=== PATIENT | male | born 1990 | race Caucasian/White ===

== ENCOUNTER → 2019-08-12 12:18 | Outpatient (BNVA) | payer MEDICARE, MEDICAID, SELFPAY | PROVIDERS: Visit Provider Nurse Practitioner Family | DX: E03.9 Hypothyroidism, unspecified (principal); E55.9 Vitamin D deficiency, unspecified; E78.2 Mixed hyperlipidemia; D64.9 Anemia, unspecified; Z79.899 Other long term (current) drug therapy | CPT/HCPCS: 80053; 80061; 81001; 82306; 83036; 83540; 84439; 84443; 84481; 85025 ==

== ENCOUNTER 2019-11-08 18:49 | Emergency (ER) | payer MEDICARE, MEDICAID, SELFPAY ==
[2019-11-08 19:01] VITALS: PULSE 117; RESP 14; TEMP 36.6; O2SAT 97; BMI 40.6
--- NOTE | 2019-11-08 19:17 | ECG_ITS ---
Measurements Intervals [place] Rate: 108 P: 47 VA: 128 QRS: 68 QRSD: 96 T: 30 QT: 328 QTc: 440 SINUS TACHYCARDIA No previous ECG available for comparison Electronically Signed On 11-09-2019 9:34:10 CDT by Laina Mejia M.D. [email or web address]
--- NOTE | 2019-11-08 19:17 | XRR_ITS ---
PROCEDURE INFORMATION: Exam: XR Chest, 1 View Exam date and time: 11/08/2019 8:35 PM Age: 29 years old Clinical indication: Chest pain; Type not specified TECHNIQUE: Imaging protocol: XR of the chest Views: 1 view. COMPARISON: CR Ribs RIGHT w PA Chest [id number] 12/01/2018 9:37 AM FINDINGS: Lungs: Unremarkable. No consolidation. Pleural space: Unremarkable. No pleural effusion. No pneumothorax. Heart/Mediastinum: Unremarkable. No cardiomegaly. Bones/joints: Unremarkable. XR/XR chest 1V portable [id number] IMPRESSION: No acute findings.
[2019-11-08 19:44] VITALS: BP 152/110
[2019-11-08 20:00] LABS: Basophils # 0.1 10^3/uL (0.0-0.1); Basophils % 0.7 %; Eosinophils # 0.6 10^3/uL (0.0-0.8); Eosinophils % 4.1 %; Hemoglobin 16.2 g/dL (11.7-16.6); Mean Corpuscular HGB Conc 31.2 g/dL (30.0-36.0); Mean Corpuscular Hemoglobin 25.1 pg (28.0-34.0); Mean Corpuscular Volume 80.6 fL (80-94); Mean Platelet Volume 9.1 fL (7.4-10.4); Monocytes # 0.9 10^3/uL (0.2-0.9); Monocytes % 6.6 %; Neutrophils # 9.1 10^3/uL (1.8-7.7); Neutrophils % 66.2 %; Nucleated Red Blood Cells % 0 %; Platelet Count 424 10^3/cmm (130-400); Red Blood Count 6.45 10^6/uL (4.1-5.3); Red Cell Distribution Width 15.2 % (12.1-15.1); White Blood Count 13.7 10^3/uL (4.0-10.0)
[2019-11-08 20:21] LABS: Alanine Aminotransferase 42 U/L (0-41); Albumin Level 4.9 g/dL (3.5-5.2); Alkaline Phosphatase 68 IU/L (40-130); Anion Gap 17.6 (5-19); Aspartate Amino Transferase 29 U/L (0-40); Blood Urea Nitrogen 16 mg/dL (6-20); Calcium 10.7 mg/dL (8.5-10.5); Carbon Dioxide 27 mmol/L (22-29); Chloride 99 mmol/L (98-107); Globulin 3.5 g/dL (1.3-4.6); Glomerular Filtration Rate 132.4 mL/min (90-130); Glucose 97 mg/dL (65-115); Osmolality Calculated 286 mOsm/kg (285-295); Potassium 3.6 mmol/L (3.5-5.1); Sodium 140 mmol/L (136-145); Total Bilirubin 2.1 mg/dL (0.15-1.2); Total Protein 8.4 g/dL (6.6-8.7); Troponin(5th) Baseline 6 ng/mL (0-15)
--- NOTE | 2019-11-08 20:51 | W.ED.GENADLT ---
HPI - General Adult General: Chief complaint: Headache Stated complaint: HIGH HEART RATE/BP Time Seen by Provider: 11/08/19 20:18 Source: patient Mode of arrival: ambulatory Limitations: no limitations History of Present Illness: HPI narrative: Patient is a 29-year-old male who presents to ED today with complaint of high blood pressure. Patient states he has been noticing high blood pressure over the past 1 to 2 weeks ever since he began checking it at home. He was initially seen at [facility] ED who placed the patient on clonidine. Patient followed up with his PCP DAMIAN whalen who placed the patient on amlodipine. Prescription according to the mother is written for 10 mg twice daily but patient was instructed to only take 1 a day. Patient reports his blood pressure earlier today was 190 systolic. He has been having intermittent headaches over the past several weeks. Onset (ago): week(s) Associated symptoms: Deny chest pain, dyspnea, headache(s), rash, palpitations or syncope Review of Systems Const: Denies: fever(s) or chills Eyes: Denies: change in vision, blurry vision, photophobia, floaters or seeing flashes Card: Denies: chest pain, palpitations, irregular heart rhythm, edema, swelling of feet/ankles, lightheadedness, syncope, pre-syncope, dyspnea on exertion, orthopnea or leg pain with exertion Resp: Denies: dyspnea GI: Denies: abdominal pain Musc: Denies: neck pain or back pain Skin/Breast: Denies: rash Neuro: Denies: headache(s), numbness in extremities, weakness in extremities, sensory changes, lack of coordination, difficulty walking, frequent falls, dizziness or Slurred speech present [facility] ED PFSH: Medical History (Updated 11/08/19 @ 21:42 by VANESSA Cheema) ADHD (attention deficit hyperactivity disorder) Anemia Asperger's disorder Bipolar 2 disorder Bipolar disorder, unspecified Environmental and seasonal allergies Headache Hypothyroid Mixed hyperlipidemia Vitamin D deficiency Surgical History History of cholecystectomy History of tonsillectomy and adenoidectomy Social History Smoking and tobacco status: never smoked Second hand smoke exposure: No Smoking risk assessment/counseling performed?: No Alcohol intake: never Desire information about alcohol rehabilitation?: No Counseling given: No Physical Exam Const: COMMON NORMALS: no acute distress, average body habitus, patient oriented x3, no limitations, healthy appearing, alert and well nourished ORIENTATION/CONSCIOUSNESS: Yes oriented to person, Yes oriented to place and Yes oriented to time Chest: COMMONS NORMALS: normal inspection of the chest and normal palpation of entire chest wall Resp: COMMON NORMALS: normal respiratory effort and clear to auscultation bilaterally AUSCULTATION: clear to auscultation bilaterally Cardio: COMMON NORMALS: regular rhythm RATE: tachycardic RHYTHM: regular rhythm Neuro: MARIAM COMA SCALE: document GCS findings [place] coma scale eye opening: Spontaneous [place] coma scale verbal response: Orientated Mariam coma scale motor response: Obey commands Mariam coma scale total score: 15 COMMON NORMALS: patient oriented x3, moves all extremities, no focal motor deficits, no sensory deficits noted and gait normal SENSORIUM/ORIENTATION: Yes alert, Yes oriented to person, Yes oriented to place and Yes oriented to time Skin: COMMON NORMALS: no rashes or lesions noted GENERAL SKIN EXAM: no rashes or lesions noted Course Vital Signs: Vital signs: Vital Signs Temperature 97.8 F 11/08/19 19:01 Pulse Rate 104 H 11/08/19 21:51 Respiratory Rate 18 11/08/19 21:51 Blood Pressure 149/99 11/08/19 21:51 Pulse Oximetry 96 11/08/19 21:51 MDM - General Adult MDM Narrative: Medical decision making narrative: Patient is in NAD-he is stefania on his cell phone and doesn't even look up when I speak to him regarding discharge and plan. Patient's labs including troponin as well as a CXR and EKG all are non-concerning. We will add metoprolol to patient's blood pressure regimen. He has a follow-up appointment with his PCP DAMIAN whalen on Sunday for further follow-up. Lab Data: Labs: Lab Results 11/08/19 11/08/19 11/08/19 Range/Units 19:49 19:49 19:49 WBC 13.7 H (4.0-10.0) 10^3/ uL RBC 6.45 H (4.1-5.3) 10^6/u L Hgb 16.2 (11.7-16.6) g/dL Hct 52.0 (42.0-52.0) % MCV 80.6 (80-94) fL MCH 25.1 L (28.0-34.0) pg MCHC 31.2 (30.0-36.0) g/dL RDW 15.2 H (12.1-15.1) % Plt Count 424 H (130-400) 10^3/c mm MPV 9.1 (7.4-10.4) fL Neut % (Auto) 66.2 % Lymph % (Auto) 22.0 % [place] % (Auto) 6.6 % Eos % (Auto) 4.1 % Baso % (Auto) 0.7 % Neut # (Auto) 9.1 H (1.8-7.7) 10^3/u L Lymph # (Auto) 3.0 (0.8-4.8) 10^3/u L [place] # (Auto) 0.9 (0.2-0.9) 10^3/u L Eos # (Auto) 0.6 (0.0-0.8) 10^3/u L Baso # (Auto) 0.1 (0.0-0.1) 10^3/u L Nucleated RBC % (a uto) 0 % Nucleated RBCs # 0.0 /100WBC Sodium 140 (136-145) mmol/L Potassium 3.6 (3.5-5.1) mmol/L Chloride 99 (98-107) mmol/L Carbon Dioxide 27 (22-29) mmol/L Anion Gap 17.6 (5-19) BUN 16 (6-20) mg/dL Creatinine 0.7 (0.7-1.2) mg/dL GFR Calculation 132.4 H (90-130) mL/min Glucose 97 (65-115) mg/dL Calculated Osmolal ity 286 (285-295) mOsm/k g Calcium 10.7 H (8.5-10.5) mg/dL Total Bilirubin 2.1 H (0.15-1.2) mg/dL AST 29 (0-40) U/L ALT 42 H (0-41) U/L Alkaline Phosphata se 68 (40-130) IU/L Troponin T Baselin e 6 (0-15) ng/mL Troponin T 120 Min bandar (0-15) ng/mL Total Protein 8.4 (6.6-8.7) g/dL Albumin 4.9 (3.5-5.2) g/dL Globulin 3.5 (1.3-4.6) g/dL / Range/Units 21:40 WBC (4.0-10.0) 10^3/ uL RBC (4.1-5.3) 10^6/u L Hgb (11.7-16.6) g/dL Hct (42.0-52.0) % MCV (80-94) fL MCH (28.0-34.0) pg MCHC (30.0-36.0) g/dL RDW (12.1-15.1) % Plt Count (130-400) 10^3/c mm MPV (7.4-10.4) fL Neut % (Auto) % Lymph % (Auto) % [place] % (Auto) % Eos % (Auto) % Baso % (Auto) % Neut # (Auto) (1.8-7.7) 10^3/u L Lymph # (Auto) (0.8-4.8) 10^3/u L [place] # (Auto) (0.2-0.9) 10^3/u L Eos # (Auto) (0.0-0.8) 10^3/u L Baso # (Auto) (0.0-0.1) 10^3/u L Nucleated RBC % (a uto) % Nucleated RBCs # /100WBC Sodium (136-145) mmol/L Potassium (3.5-5.1) mmol/L Chloride (98-107) mmol/L Carbon Dioxide (22-29) mmol/L Anion Gap (5-19) BUN (6-20) mg/dL Creatinine (0.7-1.2) mg/dL GFR Calculation (90-130) mL/min Glucose (65-115) mg/dL Calculated Osmolal ity (285-295) mOsm/k g Calcium (8.5-10.5) mg/dL Total Bilirubin (0.15-1.2) mg/dL AST (0-40) U/L ALT (0-41) U/L Alkaline Phosphata se (40-130) IU/L Troponin T Baselin e (0-15) ng/mL Troponin T 120 Min bandar 6.00 (0-15) ng/mL Total Protein (6.6-8.7) g/dL Albumin (3.5-5.2) g/dL Globulin (1.3-4.6) g/dL Imaging Data^: CXR: My impression: NAD EKG Data^: EKG 1: EKG interpretation date: 11/08/19 EKG interpretation time: 20:53 Interpretation: Sinus tachycardia Rate [address] elevation or depression changes noted Discharge Plan Discharge Patient Disposition: Home, Self-Care Clinical Impression: Hypertension Qualifiers: Hypertension type: essential hypertension Qualified Code(s): I10 - Essential (primary) hypertension Condition: Stable Prescriptions: New metoprolol tartrate 25 mg tablet 25 mg PO BID Qty: 60 RF: 0 No Action nystatin 100,000 unit/gram cream 1 applic TOPICAL BID 30 Days Qty: 30 RF: 0 triamcinolone acetonide 0.5 % cream 1 applic TOPICAL DAILY 30 Days Qty: 15 RF: 0 mupirocin 2 % ointment TOPICAL RF: 0 cholecalciferol (vitamin D3) 1,250 mcg (50,000 unit) capsule 50,000 unit PO DAILY 90 Days Qty: 12 RF: 1 hydroxyzine HCl 10 mg tablet 10 mg PO BID PRN (Reason: itching) 30 Days Qty: 60 RF: 0 amitriptyline 10 mg tablet 10 - 20 mg PO .at bedtime 30 Days Qty: 60 RF: 0 mupirocin 2 % ointment 1 applic TOPICAL TID PRN (Reason: cellulitis) 30 Days Qty: 22 RF: 2 amlodipine 5 mg tablet 10 mg PO DAILY 30 Days Qty: 60 RF: 0 levothyroxine 200 mcg tablet PO RF: 0 Combivent Respimat 20-100 mcg/actuation mist 1 puff INHALATION Q6H Qty: 4 RF: 0 ibuprofen 800 mg tablet 800 mg PO Q8H PRN (Reason: pain) 30 Days Qty: 30 RF: 1 Discharge Orders: Discharge Order (Routine); Ordered 11/08/19 Ordered By: Frances Limon Patient Instructions: Hypertension (ED) Activity Restrictions/Additional Instructions: I will add another medication to patient's blood pressure regimen. Keep taking the Norvasc 5 mg tablet daily. Please keep blood pressure log (measure 2-3 times daily). Please follow-up with primary care next week for reevaluation. Discharge Date/Time: 11/08/19 21:50 Coding Level of Care Code ED Mail Manager for Kelsey Espinoza
[2019-11-08 21:51] VITALS: BP 149/99; PULSE 104; RESP 18; O2SAT 96
[2019-11-08 22:01] LABS: Troponin 5 2HR Delta 0 ABS# (0-10)
== END 2019-11-08 21:50 | disposition home or self-care (01) ==
PROVIDERS: Emergency Provider Physician Assistant
DX: I10 Essential (primary) hypertension (principal); F84.5 Asperger's syndrome; E78.2 Mixed hyperlipidemia
CPT/HCPCS: 12345; 36415; 71045; 80053; 84484; 85025; 93005; 99281; 99282; 99283

== ENCOUNTER → 2020-03-30 10:56 | Outpatient (BNVA) | payer MEDICARE, MEDICAID, SELFPAY | PROVIDERS: Visit Provider Nurse Practitioner Family | DX: Z11.59 Encounter for screening for other viral diseases (principal); Z20.828 Contact with and (suspected) exposure to other viral communicable diseases; J06.9 Acute upper respiratory infection, unspecified | CPT/HCPCS: 87635 ==

== ENCOUNTER → 2020-05-27 09:56 | Outpatient (BNVA) | payer MEDICARE, MEDICAID, SELFPAY | PROVIDERS: Visit Provider Nurse Practitioner Family | DX: D50.9 Iron deficiency anemia, unspecified (principal); I10 Essential (primary) hypertension; Z79.899 Other long term (current) drug therapy; E78.2 Mixed hyperlipidemia; E55.9 Vitamin D deficiency, unspecified; R04.0 Epistaxis | CPT/HCPCS: 80053; 80061; 81003; 82306; 82607; 83036; 83540; 85025 ==

== ENCOUNTER → 2020-10-28 15:26 | Outpatient (BNVA) | payer MEDICARE, MEDICAID, SELFPAY | PROVIDERS: Visit Provider Nurse Practitioner Family | DX: E03.9 Hypothyroidism, unspecified (principal); E55.9 Vitamin D deficiency, unspecified; I10 Essential (primary) hypertension; D50.9 Iron deficiency anemia, unspecified; E78.2 Mixed hyperlipidemia; L30.9 Dermatitis, unspecified; Z79.899 Other long term (current) drug therapy | CPT/HCPCS: 80053; 80061; 81003; 82306; 82607; 82746; 83036; 83550; 84439; 84443; 85025 ==

== ENCOUNTER 2020-12-08 21:06 | Emergency (ER) | payer MEDICARE, MEDICAID, SELFPAY ==
[2020-12-08 21:36] VITALS: BP 148/102; PULSE 101; RESP 16; TEMP 36.7; O2SAT 94; BMI 40.1
--- NOTE | 2020-12-08 21:53 | ED_ITS ---
HPI - Allergic Reaction General: Chief complaint: Allergic Reaction Stated complaint: WASP STING Time Seen by Provider: 12/08/20 21:49 Source: patient Mode of arrival: ambulatory Limitations: no limitations History of Present Illness: HPI narrative: 30-year-old male who states he was stung by a wasp 3 times this afternoon. He states he had some pain at the site and itchiness. He states he also folic his throat was maybe swelling and felt short of breath. He is in no distress here with no signs of throat swelling. Denies any worsening improving factors. Associated symptoms: Deny abdominal pain, nausea or vomiting Review of Systems Const: Denies: fever(s), chills, body aches or change in appetite Eyes: Denies: blurry vision or eye discomfort ENMT: Denies: throat pain or dental pain Card: Denies: chest pain Resp: Denies: dyspnea GI: Denies: abdominal pain, nausea, vomiting or diarrhea : Denies: dysuria Musc: Denies: neck pain or back pain Skin/Breast: Denies: rash Neuro: Denies: headache(s) Psych: Denies: depression Emir/Lymph: Denies: easy bruising All/Imm: Denies: urticaria PFSH ED PFSH: Medical History (Updated 12/08/20 @ 21:53 by Randy Romano MD) ADHD (attention deficit hyperactivity disorder) Anemia Asperger's disorder Bipolar 2 disorder Bipolar disorder, unspecified Cough Dermatitis Environmental and seasonal allergies Essential hypertension, benign Headache Hypothyroid Leukocytosis Lower respiratory tract infection Medication management Mixed hyperlipidemia Nasal bleeding Vitamin D deficiency Surgical History History of cholecystectomy History of tonsillectomy and adenoidectomy Social History Smoking and tobacco status: never smoked Second hand smoke exposure: No Smoking risk assessment/counseling performed?: No Alcohol intake: never Desire information about alcohol rehabilitation?: No Counseling given: No Physical Exam Const: COMMON NORMALS: no acute distress, patient oriented x3 and healthy appearing HENMT: COMMON NORMALS: normocephalic and atraumatic HEAD & SCALP: normocephalic and atraumatic THROAT: posterior oropharynx normal Eye: COMMON NORMALS: Equal, round and reactive pupils present and EOMs intact bilaterally PUPIL: Yes Equal, round and reactive pupils present Neck/C-Spine: COMMON NORMALS: full ROM and supple Chest: COMMONS NORMALS: normal inspection of the chest and normal palpation of entire chest wall Resp: COMMON NORMALS: normal respiratory effort, No retractions, No use of accessory muscles and clear to auscultation bilaterally AUSCULTATION: clear to auscultation bilaterally Cardio: COMMON NORMALS: regular rate, regular rhythm and No murmurs present (Cardio) RATE: regular rate RHYTHM: regular rhythm GI: COMMON NORMALS: Normal to inspection, nondistended, normoactive bowel sounds present, Soft to palpation, non-tender and no masses PALPATION: Yes Soft to palpation Extremity: COMMON NORMALS: normal to inspection and full ROM Neuro: COMMON NORMALS: patient oriented x3, moves all extremities and no focal motor deficits Psych: COMMON NORMALS: mental status grossly normal, Normal thought process present and cooperative THOUGHT PROCESS: Normal thought process present Skin: COMMON NORMALS: no rashes or lesions noted and no wounds NARRATIVE SKIN EXAM: 2 and 6 things to lower back along with left middle finger GENERAL SKIN EXAM: no rashes or lesions noted Course Vital Signs: Vital signs: Vital Signs Temperature 98.1 F 12/08/20 21:36 Pulse Rate 101 H 12/08/20 21:36 Respiratory Rate 16 12/08/20 21:36 Blood Pressure 148/102 12/08/20 21:36 Pulse Oximetry 94 12/08/20 21:36 MDM - Allergic Reaction MDM Narrative: Medical decision making narrative: Patient presents here with stating to his back and his finger with no signs of severe allergic reactions. He has minimal swelling at the sites and no dyspnea or throat swelling here. Patient given steroid and Benadryl and is stable for discharge. He is return if worsening. Discharge Plan Discharge Patient Disposition: Home Clinical Impression: Accidental wasp sting Condition: Stable Prescriptions: No Action albuterol sulfate 0.63 mg/3 mL solution for nebulization 0.63 mg INHALATION Q6H PRN (Reason: bronchospasm) 30 Days Qty: 90 RF: 0 nystatin 100,000 unit/gram cream 1 applic TOPICAL BID 30 Days Qty: 60 RF: 2 triamcinolone acetonide 0.1 % ointment 1 applic topical BID PRN (Reason: dermatitis) 30 Days Qty: 80 RF: 1 levothyroxine 200 mcg tablet PO RF: 0 topiramate 25 mg tablet PO RF: 0 sodium chloride 0.9 % aerosol,spray 1 spray intranasal TID PRN (Reason: dry nasal passages) 30 Days Qty: 50 RF: 2 metoprolol tartrate 25 mg tablet See Rx Instructions .ROUTE .COMPLEX Qty: 60 RF: 2 amlodipine 5 mg tablet See Rx Instructions .ROUTE .COMPLEX Qty: 60 RF: 2 cholecalciferol (vitamin D3) 1,250 mcg (50,000 unit) capsule 50,000 unit PO .weekly Qty: 4 RF: 2 rosuvastatin [Crestor] 5 mg tablet 2.5 mg PO DAILY Qty: 30 RF: 2 Advair HFA 230-21 mcg/actuation HFA aerosol inhaler See Rx Instructions .ROUTE .COMPLEX Qty: 12 RF: 2 Combivent Respimat 20-100 mcg/actuation mist See Rx Instructions .ROUTE .COMPLEX Qty: 4 RF: 2 Discharge Orders: Discharge ED (Routine); Ordered 12/08/20 Ordered By: Randy Romano Referrals: DAMIAN Viveros, WIRE TINNER [Primary Care Provider] - Discharge Diet: Advance as tolerated Discharge Activity: Resume usual activity Patient Instructions: Insect Bite or Sting (ED) Coding Level of Care Code ED Senior National Account Manager for Kelsey Espinoza
[2020-12-08] MEDS: famotidine 20 mg Tablet 40 MG PO (22:02)
[2020-12-08] MEDS: predniSONE 20 mg Tablet 60 MG PO (22:02)
== END 2020-12-08 22:27 | disposition home or self-care (01) ==
PROVIDERS: Emergency Provider Emergency Medicine; PCP Nurse Practitioner Family
DX: T63.461A Toxic effect of venom of wasps, accidental (unintentional), initial encounter (principal); F84.5 Asperger's syndrome; I10 Essential (primary) hypertension; E78.2 Mixed hyperlipidemia
CPT/HCPCS: 99283; J7512

== ENCOUNTER 2021-06-17 13:15 | Emergency (ER) | payer MEDICARE, MEDICAID, SELFPAY ==
--- NOTE | 2021-06-17 13:17 | W.ED.PSYCHS ---
HPI - Psych General: Chief Complaint: Psychiatric Symptoms Stated Complaint: PSYCH EVALUATION Time Seen by Provider: 06/17/21 13:16 History of Present Illness: HPI Narrative: Marcio Baker is a 31-year-old individual who presents the emergency department due to worsening stress and depression primarily requesting resources. The patient says over the past number of years, since coming out as transgender, the patient's home situation has been difficult. Marcio feels no support from family and at times gets into fights with stepfather and sibling. The patient reports baseline depression however no active SI or SI plan. No history of suicide attempts. No other significant medical complaints or changes in health. No other specific exacerbating or alleviating factors identified. Review of Systems General: Reports: 10 or more systems reviewed and unremarkable except in HPI and below PFSH ED PFSH: Medical History Acute bacterial sinusitis ADHD (attention deficit hyperactivity disorder) Anemia Asperger's disorder Bipolar 2 disorder Bipolar disorder, unspecified Cerumen impaction Cough Dermatitis Environmental and seasonal allergies Essential hypertension, benign Headache Hypothyroid Leukocytosis Lower respiratory tract infection Medication management Mixed hyperlipidemia Nasal bleeding Vitamin D deficiency Surgical History History of cholecystectomy History of tonsillectomy and adenoidectomy Social History Smoking and tobacco status: never smoked Second hand smoke exposure: No Smoking risk assessment/counseling performed?: No Alcohol intake: never Desire information about alcohol rehabilitation?: No Counseling given: No Physical Exam Narrative: EXAM NARRATIVE: GENERAL/CONSTITUTIONAL - well-appearing. Obese. Eyes - PERRL, no conjunctival injection ENMT - Atraumatic external nose and ears. Moist mucous membranes NECK - supple. trachea midline CARDIOVASCULAR - regular rate and rhythm. RESPIRATORY -clear to auscultation bilaterally. ABDOMEN/GI - Nontender/Nondistended. MSK - Extremities without obvious deformity or tenderness to palpation SKIN - Warm, Dry NEURO - alert and appropriately oriented. Moves all extremities equally. PSYCH -frustrated affect Course ED course: - Patient was seen and evaluated by me at bedside -Vital signs obtained - Initial evaluation notable for exam as above - Labs and imaging obtained and reviewed - Challenging situation, unfortunately the patient has no indication for hospital admission. I attempted multiple times to have social work come and assist the patient however it is unclear if they ever actually spoke with the patient. Ultimately I will place an order for case management to assist with housing resources on Sunday. - Patient discharged in satisfactory condition. Vital Signs: Vital signs: Vital Signs Temperature 97.6 F 06/17/21 13:34 Pulse Rate 103 H 06/17/21 17:35 Respiratory Rate 15 06/17/21 17:35 Blood Pressure 137/101 06/17/21 17:35 Pulse Oximetry 92 06/17/21 17:35 MDM - Psych Medical Records: Attestation: I reviewed the patient's medical records. Lab Data: Attestation: I reviewed the patient's lab results. Discharge Plan Discharge Patient Disposition: Home Clinical Impression: Depression, Other social stressor Condition: Stable Prescriptions: No Action triamcinolone acetonide 0.1 % ointment 1 applic topical BID PRN (Reason: dermatitis) 30 Days Qty: 80 RF: 1 albuterol sulfate 0.63 mg/3 mL solution for nebulization 0.63 mg INHALATION Q6H PRN (Reason: bronchospasm) 30 Days Qty: 90 RF: 1 (DME) nebulizer mask See Rx Instructions .Route .MEDSUPPLY Qty: 1 RF: 0 nystatin 100,000 unit/gram cream 1 applic TOPICAL BID 30 Days Qty: 60 RF: 2 topiramate 25 mg tablet 25 mg PO .nightly 30 Days Qty: 30 RF: 0 sodium chloride 0.9 % aerosol,spray 1 spray intranasal TID PRN (Reason: dry nasal passages) 30 Days Qty: 50 RF: 2 amlodipine 5 mg tablet See Rx Instructions .ROUTE .COMPLEX Qty: 60 RF: 2 cholecalciferol (vitamin D3) 1,250 mcg (50,000 unit) capsule 50,000 unit PO .weekly Qty: 4 RF: 2 rosuvastatin [Crestor] 5 mg tablet 2.5 mg PO DAILY Qty: 30 RF: 2 Advair HFA 230-21 mcg/actuation HFA aerosol inhaler See Rx Instructions .ROUTE .COMPLEX Qty: 12 RF: 0 Combivent Respimat 20-100 mcg/actuation mist See Rx Instructions .ROUTE .COMPLEX Qty: 4 RF: 0 ibuprofen 800 mg tablet See Rx Instructions .ROUTE .COMPLEX Qty: 30 RF: 0 metoprolol tartrate 25 mg tablet See Rx Instructions .ROUTE .COMPLEX Qty: 60 RF: 5 Discharge Orders: Discharge ED (Routine); Ordered 06/17/21 Ordered By: Chris Murcia Referrals: DAMIAN Viveros FNP [Primary Care Provider] - Discharge Diet: Usual diet Discharge Activity: Resume usual activity Patient Instructions: Depression (ED) Activity Restrictions/Additional Instructions: Thank you for visiting the emergency department. You were seen and evaluated for increased stress. This is a challenging social situation and you will likely benefit from leaving your current housing arrangement. Unfortunately, this will take some time. I will message our high risk case manager to follow-up regarding assistance for new housing arrangements. Please continue to follow-up with your primary care provider and psychiatric care provider. Please return to the emergency department for worsening symptoms, worsening depression, thoughts of harming your self or others, or anything else that you are concerned about and feel needs emergency department evaluation. Coding Level of Care Code ED [employer] Agriculture Specialist for Kelsey Espinoza
[2021-06-17 13:34] VITALS: BP 148/99; PULSE 90; RESP 18; TEMP 36.4; O2SAT 95; BMI 40.1
--- NOTE | 2021-06-17 17:19 | PC.NURSE ---
Spoke with Emily a social work instructor assigned to pt. Emily discussed with this nurse that pt would be eligible for living in a longterm but would not be able to get into the home until sunday or sunday. Additional case management order placed for Dr. Murcia for follow up on sunday.
[2021-06-17 17:35] VITALS: BP 137/101; PULSE 103; RESP 15; O2SAT 92
--- NOTE | 2021-06-21 10:56 | DCPLANNER ---
manager payer had message to speak with patient about housing resources. manager payer was unable to reach patient at this time.
== END 2021-06-17 17:38 | disposition home or self-care (01) ==
PROVIDERS: Emergency Provider Emergency Medicine; PCP Nurse Practitioner Family
DX: F32.A Depression, unspecified (principal); Z63.8 Other specified problems related to primary support group; F84.5 Asperger's syndrome; I10 Essential (primary) hypertension; E78.2 Mixed hyperlipidemia
CPT/HCPCS: 99283

== ENCOUNTER → 2021-10-31 10:50 | Outpatient (BNVA) | payer MEDICARE, MEDICAID, SELFPAY | PROVIDERS: PCP Nurse Practitioner Family; Visit Provider Nurse Practitioner | DX: I10 Essential (primary) hypertension (principal); R60.9 Edema, unspecified | CPT/HCPCS: 80053; 84443; 85025 ==

== ENCOUNTER 2022-01-13 10:52 | Emergency (ER) | payer MEDICARE, MEDICAID, SELFPAY ==
[2022-01-13 10:57] VITALS: BP 184/100; PULSE 109; RESP 16; TEMP 36.6; O2SAT 100; BMI 40.1
--- NOTE | 2022-01-13 11:13 | PC.NURSE ---
Patient denies SI/HI at this time. Patient will not be placed with sitter or psych safe room at this time per ERP.
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
[2022-01-13 11:26] VITALS: BP 139/87; PULSE 100; RESP 18; O2SAT 98
[2022-01-13 11:29] LABS: Basophils # 0.1 10^3/uL (0.0-0.1); Basophils % 0.6 %; Eosinophils # 0.4 10^3/uL (0.0-0.8); Hematocrit 43.8 % (42.0-52.0); Hemoglobin 14.1 g/dL (11.7-16.6); Lymphocytes # 1.8 10^3/uL (0.8-4.8); Lymphocytes % 14.5 %; Mean Corpuscular HGB Conc 32.2 g/dL (30.0-36.0); Mean Corpuscular Hemoglobin 26.4 pg (28.0-34.0); Mean Corpuscular Volume 81.9 fl (80-94); Mean Platelet Volume 9.3 fL (7.4-10.4); Monocytes # 0.5 10^3/uL (0.2-0.9); Monocytes % 4.3 %; Neutrophils # 9.77 10^3/uL (1.8-7.7); Neutrophils % 77.3 %; Nucleated Red Blood Cells % 0 %; Platelet Count 407 10^3/cmm (130-400); Red Blood Count 5.35 10^6/uL (4.1-5.3); Red Cell Distribution Width 14.6 % (12.1-15.1); White Blood Count 12.7 10^3/uL (4.0-10.0)
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
[2022-01-13 11:57] LABS: Acetaminophen < 5.0 ug/mL (10-30); Alanine Aminotransferase 30 U/L (0-41); Albumin Level 4.4 g/dL (3.5-5.2); Alkaline Phosphatase 58 IU/L (40-130); Anion Gap 16.8 (5-19); Aspartate Amino Transferase 24 U/L (0-40); Blood Urea Nitrogen 14 mg/dL (6-20); Calcium 9.1 mg/dL (8.5-10.5); Carbon Dioxide 24 mmol/L (22-29); Chloride 101 mmol/L (98-107); Glomerular Filtration Rate 130.7 mL/min (90-130); Glucose 167 mg/dL (65-115); Osmolality Calculated 290 mOsm/kg (285-295); Potassium 3.8 mmol/L (3.5-5.1); Salicylate < 0.3 mg/dL (3-10); Sodium 138 mmol/L (136-145); Total Bilirubin 0.9 mg/dL (0.15-1.2); Total Protein 7.4 g/dL (6.6-8.7)
[2022-01-13 13:06] VITALS: BP 128/87; PULSE 102; RESP 20; O2SAT 98
== END 2022-01-13 13:28 | disposition home or self-care (01) ==
PROVIDERS: Emergency Provider Family Medicine; PCP Family Medicine
DX: F41.8 Other specified anxiety disorders (principal); F84.0 Autistic disorder; F84.5 Asperger's syndrome; I10 Essential (primary) hypertension; E78.2 Mixed hyperlipidemia
CPT/HCPCS: 73030; 80053; 80307; 85025; 99283

== ENCOUNTER → 2022-03-06 09:49 | Outpatient (BNVA) | payer MEDICARE, MEDICAID, SELFPAY | PROVIDERS: PCP Family Medicine; Visit Provider Nurse Practitioner | DX: F64.0 Transsexualism (principal); Z51.81 Encounter for therapeutic drug level monitoring | CPT/HCPCS: 82565; 82670; 84132; 84403; 84520 ==

== ENCOUNTER → 2022-06-01 13:40 | Outpatient (BNVA) | payer MEDICARE, MEDICAID, SELFPAY | PROVIDERS: PCP Family Medicine; Visit Provider Nurse Practitioner | DX: F64.0 Transsexualism (principal) | CPT/HCPCS: 82565; 82670; 84132; 84403; 84520 ==

== ENCOUNTER → 2022-08-31 10:19 | Outpatient (BNVA) | payer MEDICARE, MEDICAID, SELFPAY | PROVIDERS: PCP Family Medicine; Visit Provider Nurse Practitioner | DX: F64.9 Gender identity disorder, unspecified (principal); F64.0 Transsexualism; Z79.899 Other long term (current) drug therapy | CPT/HCPCS: 82565; 82670; 84132; 84403; 84520 ==

== ENCOUNTER → 2022-11-10 10:51 | Outpatient (BNVA) | payer MEDICARE, MEDICAID, SELFPAY | PROVIDERS: PCP Family Medicine; Visit Provider Nurse Practitioner | DX: E03.9 Hypothyroidism, unspecified (principal) | CPT/HCPCS: 84443 ==

== ENCOUNTER → 2022-12-29 11:03 | Outpatient (BNVA) | payer MEDICARE, MEDICAID, SELFPAY | PROVIDERS: PCP Family Medicine; Visit Provider Nurse Practitioner | DX: F64.9 Gender identity disorder, unspecified (principal); Z79.899 Other long term (current) drug therapy; Z51.81 Encounter for therapeutic drug level monitoring | CPT/HCPCS: 82565; 82670; 84132; 84403 ==

== ENCOUNTER → 2023-05-07 10:51 | Outpatient (BNVA) | payer MEDICARE, MEDICAID, SELFPAY | PROVIDERS: PCP Family Medicine; Visit Provider Nurse Practitioner Family | DX: E55.9 Vitamin D deficiency, unspecified (principal); E03.9 Hypothyroidism, unspecified; E78.2 Mixed hyperlipidemia; Z79.899 Other long term (current) drug therapy; I10 Essential (primary) hypertension; D64.9 Anemia, unspecified | CPT/HCPCS: 80053; 80061; 81003; 82306; 83036; 83550; 84439; 84443; 84481; 85025; 87086 ==

== ENCOUNTER → 2023-08-01 09:37 | Outpatient (BNVA) | payer MEDICARE, MEDICAID, SELFPAY | PROVIDERS: PCP Family Medicine; Visit Provider Nurse Practitioner Family | DX: F64.9 Gender identity disorder, unspecified (principal); F64.0 Transsexualism; Z79.899 Other long term (current) drug therapy; I10 Essential (primary) hypertension; E03.9 Hypothyroidism, unspecified; E78.2 Mixed hyperlipidemia; G43.909 Migraine, unspecified, not intractable, without status migrainosus; F41.9 Anxiety disorder, unspecified | CPT/HCPCS: 80053; 80061; 82670; 83036; 84403; 84443; 85025 ==

== ENCOUNTER → 2023-10-10 13:55 | Outpatient (BNVA) | payer MEDICARE, MEDICAID, SELFPAY | PROVIDERS: PCP Nurse Practitioner Family; Visit Provider Nurse Practitioner Family | DX: M79.645 Pain in left finger(s) (principal) | CPT/HCPCS: 73130 ==

== ENCOUNTER → 2024-05-05 14:34 | Outpatient (BNVA) | payer MEDICARE, MEDICAID, SELFPAY | PROVIDERS: PCP Nurse Practitioner Family; Visit Provider Nurse Practitioner Family | DX: E55.9 Vitamin D deficiency, unspecified (principal); E78.2 Mixed hyperlipidemia; E03.9 Hypothyroidism, unspecified; Z79.899 Other long term (current) drug therapy | CPT/HCPCS: 80053; 80061; 81003; 82306; 83036; 83550; 84443; 85025 ==

== ENCOUNTER → 2024-05-12 11:33 | Outpatient (BNVA) | payer MEDICARE, MEDICAID, SELFPAY | PROVIDERS: PCP Nurse Practitioner Family; Referring Provider Nurse Practitioner Family; Visit Provider Surgery | DX: K62.5 Hemorrhage of anus and rectum (principal); R03.0 Elevated blood-pressure reading, without diagnosis of hypertension; D50.9 Iron deficiency anemia, unspecified | CPT/HCPCS: 99204 ==

== ENCOUNTER 2024-05-21 09:40 | Oncology outpatient (recurring) (ONCR) | payer MEDICARE, MEDICAID, SELFPAY ==
[2024-05-21 11:43] LABS: INR 0.98 (0.8-1.2)
[2024-05-21 11:44] LABS: Partial Thromboplastin Time 30.5 SECONDS (23.9-36.7)
[2024-05-21 11:50] LABS: Alanine Aminotransferase 58 U/L (0-41); Albumin Level 4.3 g/dL (3.5-5.2); Alkaline Phosphatase 67 U/L (40-130); Anion Gap 14.8 (5-19); Aspartate Amino Transferase 77 U/L (0-40); Blood Urea Nitrogen 13 mg/dL (6-20); Calcium 9.2 mg/dL (8.5-10.5); Carbon Dioxide 25 mmol/L (22-29); Chloride 101 mmol/L (98-107); Creatinine Clr Calc Pharmacy 244.0482; Ferritin 30 ng/mL (30-400); Globulin 2.9 g/dL (1.3-4.6); Glomerular Filtration Rate 153.3 mL/min (90-130); Glucose 107 mg/dL (65-115); Iron 26 ug/dL (59-158); Lactate Dehydrogenase 148 U/L (135-225); Osmolality Calculated 285 mOsm/kg (285-295); Potassium 3.8 mmol/L (3.5-5.1); Sodium 137 mmol/L (136-145); Total Bilirubin 0.6 mg/dL (0.15-1.2); Total Iron Binding Capacity 371 mcg/dl; Total Protein 7.2 g/dL (6.6-8.7); Unsaturated Iron Binding 345 ug/dL (112-347)
[2024-05-21 12:02] LABS: Basophils # 0.1 10^3/uL (0.0-0.1); Basophils % 1.1 %; Eosinophils # 1.3 10^3/uL (0.0-0.8); Eosinophils % 10.7 %; Hematocrit 36.3 % (37-53); Lymphocytes # 2.2 10^3/uL (0.8-4.8); Lymphocytes % 17.7 %; Mean Corpuscular HGB Conc 30.9 g/dL (30-55); Mean Corpuscular Hemoglobin 24.8 pg (27-33); Mean Corpuscular Volume 80.5 fl (82-101); Mean Platelet Volume 8.8 fL (7.4-10.4); Monocytes # 0.7 10^3/uL (0.2-0.9); Monocytes % 5.7 %; Neutrophils # 7.86 10^3/uL (1.8-7.7); Neutrophils % 64.6 %; Nucleated Red Blood Cells % 0 %; Platelet Count 525 10^3/cmm (157-399); Red Blood Count 4.51 10^6/uL (3.85-5.65); Red Cell Distribution Width 14.3 % (12.1-15.1); White Blood Count 12.18 10^3/uL (3.29-11.43)
[2024-05-21 12:03] LABS: Vitamin B12 432 pg/mL (232-1245)
[2024-05-21 12:12] LABS: Folate Level 7.9 ng/mL (4.5-32.2)
[2024-05-23 13:55] LABS: Leukemia Profile (BBPL) See Report
[2024-05-28 15:04] LABS: CALR Exon 9 Mutation NOT DETECTED (NOT DETECTED); JAK2 Exon 12 Mutation NOT DETECTED (NOT DETECTED); JAK2 V617 Mutation NOT DETECTED (NOT DETECTED); MPL Exon 10 Mutation NOT DETECTED (NOT DETECTED); Specimen Source whole blood
== END 2024-05-24 23:59 | disposition home or self-care (01) ==
LOC: ONCMED 09:41
PROVIDERS: PCP Nurse Practitioner Family; Visit Provider Internal Medicine
DX: D72.829 Elevated white blood cell count, unspecified (principal); D75.839 Thrombocytosis, unspecified; K62.5 Hemorrhage of anus and rectum; E03.9 Hypothyroidism, unspecified; G43.909 Migraine, unspecified, not intractable, without status migrainosus; F84.5 Asperger's syndrome; F64.0 Transsexualism; E66.9 Obesity, unspecified; Z68.41 Body mass index [BMI] 40.0-44.9, adult; M79.645 Pain in left finger(s)
CPT/HCPCS: 36415; 74021; 80053; 81219; 81270; 81279; 81339; 82607; 82728; 82746; 83010; 83540; 83550; 83615; 85025; 85045; 85610; 85730; 88184; 88185; 99205

== ENCOUNTER 2024-06-04 06:21 | Day surgery (SDC) | payer MEDICARE, MEDICAID, SELFPAY ==
--- NOTE | 2024-06-04 06:16 | P.ANESASSM_ITS ---
Pre-Anesthetic Assessment Height/Weight: Height 5 ft 10 in Preop Diagnosis: Rectal bleeding Operation Date: 06/04/24 07:30 Proposed Procedures p EGD 63207, 68956, G0105, K62.5(Not Applicable) - Senthil Barrett DO s Colonoscopy(Not Applicable) - Senthil Barrett DO Was Beta Nicola taken within 24 hours: N/A Was Clonidine taken within 24 hours: N/A Social No alcohol and No tobacco Exam alert, oriented x 3, clear to auscultation bilaterally and regular rate & rhythm Airway Submandibular: within normal limits Cervical ROM: within normal limits Mallampati: Class II Dentition: other (Poor dentition, multiple missing. Denies any loose) Anesthetic Plan ASA status: 3 Anesthesia: MAC Other: No prior issues with anesthesia Completed bowel prep Has been experiencing blood in stools, iron deficiency anemia noted Asked Buerger's disorder with ADHD Hypothyroidism on Synthroid Hypertension on losartan and propranolol Labs 05/21/2024 reviewed and acceptable for procedure Plan for MAC anesthetic Medications/Allergies Home Medications Medication Instructions Recorded Confirmed Last Taken Type estradiol 2 mg tablet 2 mg PO BID 30 days #60 tabs 12/14/21 06/02/24 06/02/24 Rx ibuprofen 800 mg tablet 800 mg PO Q8H PRN Pain 01/13/22 06/02/24 Unknown History progesterone micronized 100 mg 100 mg PO QAM 01/22/23 06/02/24 06/02/24 History capsule finasteride 1 mg tablet 1 mg PO DAILY 05/07/23 06/02/24 06/02/24 History albuterol sulfate 2.5 mg/3 mL 2.5 mg (3 mL) inhalation Q6H #180 04/09/24 06/02/24 2 Weeks Ago Rx (0.083 %) solution for nebulization mL ~05/19/24 ipratropium 20 mcg-albuterol 100 See Rx Instructions .Route 04/09/24 06/02/24 05/31/24 Rx mcg/actuation mist for inhalation .COMPLEX #4 grams (Combivent Respimat) sumatriptan succinate 50 mg tablet See Rx Instructions .Route 04/09/24 06/02/24 06/01/24 Rx .COMPLEX #10 tabs losartan 25 mg tablet 25 mg PO DAILY #30 tabs 05/05/24 06/02/24 06/02/24 Rx propranolol 20 mg tablet 40 mg PO BID 05/05/24 06/02/24 06/02/24 History cholecalciferol (vitamin D3) 50 50 mcg PO DAILY 90 days #90 caps 05/08/24 06/02/24 06/02/24 Rx mcg (2,000 unit) capsule levothyroxine 100 mcg capsule 100 mcg PO DAILY #100 caps 05/08/24 06/02/24 06/02/24 Rx hydroxyzine HCl 10 mg tablet 10 mg PO BID PRN Anxiety 06/02/24 06/02/24 Unknown History Allergies Allergy/AdvReac Type Severity Reaction Status Date / Time cefaclor [From Ceclor] Allergy Intermediate rash Verified 05/21/24 09:45 cefadroxil [From Duricef] Allergy Intermediate rash Verified 05/21/24 09:45 penicillin G benethamine Allergy Intermediate rash Verified 05/21/24 09:45 [benethamine penicillin] Penicillins Allergy Intermediate rash Verified 05/21/24 09:45 [facility] Anesthesia Medical History Malabsorption syndrome Iron (Fe) deficiency anemia Leukocytosis Rectal bleeding Anxiety Upper respiratory infection Migraine Cerumen impaction Acute bacterial sinusitis Dermatitis Medication management Essential hypertension, benign Cough Lower respiratory tract infection Bipolar disorder, unspecified Headache Hypothyroid Nasal bleeding Vitamin D deficiency Anemia Mixed hyperlipidemia Environmental and seasonal allergies Bipolar 2 disorder ADHD (attention deficit hyperactivity disorder) Asperger's disorder Surgical History History of cholecystectomy History of tonsillectomy and adenoidectomy Social History Smoking and tobacco/nicotine status: never used tobacco/nicotine Second hand smoke exposure: No Alcohol intake: never Data Anesthesia Cardiac Studies: No Data to Display
[2024-06-04 06:41] VITALS: BP 176/109; PULSE 116; RESP 18; TEMP 36.4; O2SAT 99; BMI 44.9
[2024-06-04] MEDS: sodium chloride 0.9% 500 ML 15 ML IV (06:51)
--- NOTE | 2024-06-04 07:37 | W.PM.OPSUD ---
Surgery/Procedure H&P Update DATE OF PROCEDURE: June 04, 2024 DATE H&P PERFORMED: 05/12/24 H&P UPDATE INFORMATION: I have reviewed H&P completed within last 30 days, I have examined patient prior to procedure and No changes to prior documentation PREOP DIAGNOSIS: Rectal bleeding PLANNED PROCEDURE: Operation Date: 06/04/24 07:30 Proposed Procedures p EGD 81130, 41272, G0105, K62.5(Not Applicable) - DO dandre Clement Colonoscopy(Not Applicable) - Senthil Barrett DO
[2024-06-04 08:15] VITALS: BP 154/91; PULSE 112; RESP 20; TEMP 37.3; O2SAT 98
[2024-06-04] MEDS: tranexamic acid 1,000 MG/100 ML PREMIX 600 MG IV (08:20)
[2024-06-04 08:30] VITALS: BP 155/116; PULSE 111; RESP 18; O2SAT 99
[2024-06-04 08:45] VITALS: BP 159/113
--- NOTE | 2024-06-04 09:11 | ANE.PACU2 ---
Inpatient post-anesthesia follow up: Airway intact: Yes Vital signs: Temperature 99.2 F Pulse Rate 111 Respiratory Rate 18 Blood Pressure 159/113 Pulse Oximetry 99 Oxygen Delivery Me thod Room Air Oxygen Flow Rate Fraction of Inspir ed Oxygen Hydration adequate: Yes Nausea and vomiting: No Pain level: 1 Mental status: Baseline
[2024-06-04 16:02] LABS: Carcinoembryonic Antigen 1.6 ng/mL (0.0-4.7)
[2024-06-09 13:37] LABS: Mismatch Repari Proteins-IHC See Report
[2024-06-09 13:40] LABS: Mismatch Repari Proteins-IHC See Report
== END 2024-06-04 09:11 | disposition home or self-care (01) ==
PROVIDERS: PCP Nurse Practitioner Family; Visit Provider Surgery
PROC: 0DJ08ZZ Inspection of Upper Intestinal Tract, Via Natural or Artificial Opening Endoscopic (ICD-10-PCS; CPT 43235; principal; 2024-06-04 07:30)
PROC: 0DJD8ZZ Inspection of Lower Intestinal Tract, Via Natural or Artificial Opening Endoscopic (ICD-10-PCS; CPT 45378; 2024-06-04 07:30)
DX: K62.5 Hemorrhage of anus and rectum (principal); E78.2 Mixed hyperlipidemia; K29.50 Unspecified chronic gastritis without bleeding; C18.4 Malignant neoplasm of transverse colon; C20 Malignant neoplasm of rectum; E03.9 Hypothyroidism, unspecified; I10 Essential (primary) hypertension
CPT/HCPCS: 36415; 43239; 45380; 45385; 82378; 88305; 88341; 88342; J2704; J7040

== ENCOUNTER → 2024-06-09 17:21 | Outpatient (BNVA) | payer MEDICARE, MEDICAID, SELFPAY | PROVIDERS: PCP Nurse Practitioner Family; Visit Provider Surgery | DX: C20 Malignant neoplasm of rectum (principal); K62.5 Hemorrhage of anus and rectum | CPT/HCPCS: 99212 ==

== ENCOUNTER 2024-06-19 12:38 | Oncology outpatient (recurring) (ONCR) | payer MEDICARE, MEDICAID, SELFPAY ==
[2024-06-19 16:06] LABS: Hematocrit 37.4 % (37-53); Mean Corpuscular HGB Conc 30.7 g/dL (30-55); Mean Corpuscular Hemoglobin 23.6 pg (27-33); Mean Corpuscular Volume 76.8 fl (82-101); Mean Platelet Volume 8.7 fL (7.4-10.4); Platelet Count 461 10^3/cmm (157-399); Red Blood Count 4.87 10^6/uL (3.85-5.65); Red Cell Distribution Width 13.6 % (12.1-15.1); White Blood Count 15.81 10^3/uL (3.29-11.43)
[2024-06-19 16:20] LABS: Absolute Eosinophils 1.4 10^3/cmm (0.0-0.7); Absolute Segmented Neutrophil 10.4 10/cmm (1.6-7.1); Eosinophils 9 %; Lymphocytes 18 %; Monocytes Absolute 1.1 10^3/cmm (0.1-0.6); Segmented Neutrophils 66 %; Total Cells Counted 100 (0-100)
[2024-06-19 16:21] LABS: Absolute Neutrophil 10.4 10^3/cmm (1.4-6.5); Alanine Aminotransferase 56 U/L (0-41); Albumin Level 4.4 g/dL (3.5-5.2); Alkaline Phosphatase 70 U/L (40-130); Anion Gap 15.7 (5-19); Aspartate Amino Transferase 67 U/L (0-40); Blood Urea Nitrogen 12 mg/dL (6-20); Calcium 9.7 mg/dL (8.5-10.5); Carbon Dioxide 26 mmol/L (22-29); Chloride 100 mmol/L (98-107); Creatinine Clr Calc Pharmacy 243.1664; Globulin 3.6 g/dL (1.3-4.6); Glomerular Filtration Rate 153.3 mL/min (90-130); Glucose 98 mg/dL (65-115); Lymphocytes Absolute 2.8 10^3/cmm (1.2-3.4); Osmolality Calculated 286 mOsm/kg (285-295); Platelet Estimate Normal (Normal); Potassium 3.7 mmol/L (3.5-5.1); Sodium 138 mmol/L (136-145); Total Bilirubin 0.7 mg/dL (0.15-1.2)
[2024-06-19 20:56] LABS: Carcinoembryonic Antigen 1.8 ng/mL (0.0-4.7)
== END 2024-06-19 23:59 | disposition home or self-care (01) ==
PROVIDERS: PCP Nurse Practitioner Family; Visit Provider Internal Medicine
DX: D72.829 Elevated white blood cell count, unspecified (principal); D75.839 Thrombocytosis, unspecified; D50.9 Iron deficiency anemia, unspecified; K62.5 Hemorrhage of anus and rectum; E03.9 Hypothyroidism, unspecified; E55.9 Vitamin D deficiency, unspecified; F84.0 Autistic disorder; F64.0 Transsexualism
CPT/HCPCS: 80053; 82378; 85007; 85027; 99213

== ENCOUNTER 2024-06-23 05:50 | Day surgery (SDC) | payer MEDICARE, MEDICAID, SELFPAY ==
[2024-06-23] VITALS (10 sets, daily range): BP systolic 123–212; BP diastolic 91–137; PULSE 86–120; RESP 15–24; TEMP 36.1–37; O2SAT 94–100; BMI 44.4
--- NOTE | 2024-06-23 | XR_ITS ---
Portable AP upright chest, 06/23/2024 Clinical Data: POST OP MEDIPORT Comparison: Portable chest, 11/08/2019 Findings: No nodules, masses or effusions are seen. The heart is normal. The pulmonary vascularity is not increased. No pneumonia or pneumothorax is seen. There is a left infusion catheter entering the left subclavian vein and ending in the superior vena cava. Impression: Negative chest. [facility] XR/XR chest 1V portable [id number] Impression: Negative chest.
--- NOTE | 2024-06-23 05:59 | XR_ITS ---
WS: [id number] C-ARM RADIOGRAPHS CHEST; 3 IMAGES HISTORY: s/p mediport COMPARISON: None available. Intraoperative imaging during LEFT subclavian Mediport placement. Tip ends in the expected location o f the cavoatrial junction.
--- NOTE | 2024-06-23 06:58 | W.PM.OPSUD ---
Surgery/Procedure H&P Update DATE OF PROCEDURE: June 23, 2024 DATE H&P PERFORMED: 06/20/24 H&P UPDATE INFORMATION: I have reviewed H&P completed within last 30 days, I have examined patient prior to procedure and No changes to prior documentation PLANNED PROCEDURE: Operation Date: 06/23/24 07:00 Proposed Procedures p Portacath Placement 19085, C20(Not Applicable) - Senthil Barrett, DO
--- NOTE | 2024-06-23 07:01 | P.ANESASSM_ITS ---
Pre-Anesthetic Assessment Height/Weight: Height 1.78 m Weight 140.614 kg O2 Del Method Room Air 06/23/24 06:14 Operation Date: 06/23/24 07:00 Proposed Procedures p Portacath Placement [id number], C20(Not Applicable) - Senthil Barrett DO Familial anesthetic complications: None Was Beta Nicola taken within 24 hours: N/A Was Clonidine taken within 24 hours: N/A Last intake: Intake Last Liquid Date 06/22/24 Last Liquid Time 21:30 Last Solid Date 06/22/24 Last Solid Time 21:30 Social No alcohol and No tobacco Exam alert, oriented x 3, clear to auscultation bilaterally and regular rate & rhythm Airway Mallampati: Class IV Dentition: other (multiple missing, poor dentition) CV/HEM Hypertension GI rectal cancer Metabolic Morbid Obesity and Thyroid Disease Neuropsych asperberger' Anesthetic Plan ASA status: 3 Anesthesia: MAC Risk of > 500 ml blood loss (7ml/kg in children): No Medications/Allergies Home Medications Medication Instructions Recorded Confirmed Last Taken Type estradiol 2 mg tablet 2 mg PO BID 30 days #60 tabs 12/14/21 06/20/24 06/22/24 Rx ibuprofen 800 mg tablet 800 mg PO Q8H PRN Pain 01/13/22 06/20/24 Unknown History progesterone micronized 100 mg 100 mg PO QAM 01/22/23 06/20/24 06/22/24 History capsule finasteride 1 mg tablet 1 mg PO DAILY 05/07/23 06/20/24 06/22/24 History albuterol sulfate 2.5 mg/3 mL 2.5 mg (3 mL) inhalation Q6H #180 04/09/24 06/23/24 2 Weeks Ago Rx (0.083 %) solution for nebulization mL ~06/09/24 sumatriptan succinate 50 mg tablet See Rx Instructions .Route 04/09/24 06/23/24 06/21/24 Rx .COMPLEX #10 tabs losartan 25 mg tablet 25 mg PO DAILY #30 tabs 05/05/24 06/20/24 06/22/24 Rx propranolol 20 mg tablet 40 mg PO BID 05/05/24 06/20/24 06/22/24 History cholecalciferol (vitamin D3) 50 50 mcg PO DAILY 90 days #90 caps 05/08/24 06/20/24 06/22/24 Rx mcg (2,000 unit) capsule levothyroxine 100 mcg capsule 100 mcg PO DAILY #100 caps 05/08/24 06/20/24 06/22/24 Rx hydroxyzine HCl 10 mg tablet 10 mg PO BID PRN Anxiety 06/02/24 06/23/24 06/12/24 History pantoprazole 40 mg tablet,delayed 40 mg PO BID 6 weeks #84 tabs 06/04/24 06/20/24 06/22/24 Rx release ipratropium 20 mcg-albuterol 100 1 puff inhalation QID PRN sob 06/20/24 06/20/24 06/17/24 History mcg/actuation mist for inhalation (Combivent Respimat) Allergies Allergy/AdvReac Type Severity Reaction Status Date / Time cefaclor [From Ceclor] Allergy Intermediate rash Verified 06/19/24 12:52 cefadroxil [From Duricef] Allergy Intermediate rash Verified 06/19/24 12:52 penicillin G benethamine Allergy Intermediate rash Verified 06/19/24 12:52 [benethamine penicillin] Penicillins Allergy Intermediate rash Verified 06/19/24 12:52 [facility] Anesthesia Medical History Malabsorption syndrome Iron (Fe) deficiency anemia Leukocytosis Rectal bleeding Anxiety Upper respiratory infection Migraine Cerumen impaction Acute bacterial sinusitis Dermatitis Medication management Essential hypertension, benign Cough Lower respiratory tract infection Bipolar disorder, unspecified Headache Hypothyroid Nasal bleeding Vitamin D deficiency Anemia Mixed hyperlipidemia Environmental and seasonal allergies Bipolar 2 disorder ADHD (attention deficit hyperactivity disorder) Asperger's disorder Surgical History History of cholecystectomy History of tonsillectomy and adenoidectomy Social History Smoking and tobacco/nicotine status: never used tobacco/nicotine Second hand smoke exposure: No Alcohol intake: never Data Anesthesia Cardiac Studies: No Data to Display
[2024-06-23] MEDS: sodium chloride 0.9% 1,000 ML 30 ML IV (07:07)
[2024-06-23] MEDS: ceFAZolin 3,000 MG in sodium chloride 0.9% (plus) 100 ML 200 MG IV (07:15)
[2024-06-23] MEDS: lidocaine-epi 2% PF 1:200,000 20 mL SDV INJECTION (07:38)
[2024-06-23] MEDS: heparin, porcine 1,000 unit/mL INJ 10 mL 10000 UNIT IRRIGATION (07:40)
--- NOTE | 2024-06-23 08:03 | PM.OP ---
Operative Report Date of procedure: June 23, 2024 Surgeon: Senthil Barrett DO Procedure: Pre-op diagnosis: Rectal cancer Post-op diagnosis: same Procedure done: Mediport placement Intraoperative interpretation of fluoroscopy Implants: PowerPort Specimens removed/disposition: None Surgeon: Senthil Barrett DO Anesthesia: MAC and Local Estimated blood loss (mL): 5 Complications: None apparent Procedure: The patient was taken to the operating room and placed supine on the operating room table. All bony prominences were padded. She was given IV sedation and monitored throughout the case by the anesthesia personnel. SCDs were placed and turned on. The arms were tucked to the side. Patient received Ancef 3 g preoperatively IV. The bilateral chest wall was prepped and draped in usual sterile fashion using chlorhexidine base prep. Sterile drapes were applied. We did procedure pause prior to beginning. An 18 gauge needle was placed in the left subclavian vein. Dark, nonpulsatile blood was aspirated. A guidewire was placed through the needle centrally toward the atrial/vena caval junction. Fluoroscopy visualized good placement. The needle was removed and the guidewire was clipped to the drape with a hemostat. Further local anesthetic was infiltrated in the soft tissues of the left chest wall and a #15 blade was used to make a horizontal skin incision. A subcutaneous Mediport pocket was created using Bovie cautery, dissecting down through the skin and subcutaneous tissues. Meticulous hemostasis was achieved. The Mediport was sutured in position using 3-0 vicryl suture x2 stitches. A #15 blade was used to make a small skin rosa maria around the guidewire insertion area. The Mediport tubing was tunneled through the subcutaneous tissues up to the needle insertion location. A dilator with a peel-away sheath was placed over the guidewire and placed centrally. After measuring the Mediport tubing was cut to length so that the tip would end at the atrial/vena caval junction. The inner cannula and the guidewire were removed, leaving the dilator sheath in place. The Mediport was flushed. The tip of the catheter was inserted through the peel-away sheath and the peel-away sheath removed in the standard fashion. The Mediport was accessed with a straight Knig needle and dark, nonpulsatile blood was aspirated and flushed using heparinized saline to hep-lock the Mediport. Final fluoroscopy visualization showed no kink in the catheter and the tip of the Mediport tubing near the atrial/vena caval junction. There is no obvious pneumothorax. Both skin incisions were thoroughly irrigated and suctioned dry. Meticulous hemostasis noted. The dermis was approximated with 3-0 Vicryl in an interrupted fashion. Skin was closed with running subcuticular 4-0 Monocryl and Dermabond. Patient was awakened from anesthesia and transferred via her cart to the recovery room in stable condition. All needle, sponge, and instrument counts were correct per the operating personnel x2 counts.
--- NOTE | 2024-06-23 08:25 | PC.NURSE ---
ROMAN Barahona notified of pts pre op blood pressure and current bps in pacu - orders rec'd
[2024-06-23] MEDS: labetalol 5 mg/mL SDV 20mL IVP (08:27)
--- NOTE | 2024-06-23 08:31 | XR_ITS ---
WS: [id number] Portable AP upright chest, 06/23/2024 Clinical Data: POST OP MEDIPORT Comparison: Portable chest, 11/08/2019 Findings: No nodules, masses or effusions are seen. The heart is normal. The pulmonary vascularity is not increased. No pneumonia or pneumothorax is seen. There is a left infusion catheter entering the left subclavian vein and ending in the superior vena cava.
[2024-06-23] MEDS: HYDROcodone-acetaminophen 7.5-325 mg Tablet 1 TAB PO (08:59)
[2024-06-23] MEDS: ondansetron 4 MG Tablet PO (09:47)
--- NOTE | 2024-06-23 09:47 | SC_ITS ---
C-ARM RADIOGRAPHS CHEST; 3 IMAGES HISTORY: s/p mediport COMPARISON: None available. Intraoperative imaging during LEFT subclavian Mediport placement. Tip ends in the expected location of the cavoatrial junction. IMPRESSION: Intraoperative imaging during LEFT Mediport placement. RASHAD
--- NOTE | 2024-06-23 09:50 | ANE.PACU2 ---
Inpatient post-anesthesia follow up: Airway intact: Yes Vital signs: Temperature 97.7 F Pulse Rate 89 Respiratory Rate 18 Blood Pressure 126/91 Pulse Oximetry 99 Oxygen Delivery Me thod Room Air Oxygen Flow Rate Fraction of Inspir ed Oxygen Hydration adequate: Yes Nausea and vomiting: No Pain level: 1 Mental status: Baseline
== END 2024-06-23 09:53 | disposition home or self-care (01) ==
PROVIDERS: PCP Nurse Practitioner Family; Visit Provider Surgery
PROC: (CPT 36561; principal; 2024-06-23 07:00)
DX: C20 Malignant neoplasm of rectum (principal); I10 Essential (primary) hypertension; E66.01 Morbid (severe) obesity due to excess calories; Z68.41 Body mass index [BMI] 40.0-44.9, adult; E03.9 Hypothyroidism, unspecified; E78.2 Mixed hyperlipidemia
CPT/HCPCS: 36561; 71045; 76000; C1788; J0690; J1644; J2250; J2704; J3010; J3490; J7030; Q0162

== ENCOUNTER → 2024-07-07 14:36 | Outpatient (BNVA) | payer MEDICARE, MEDICAID, SELFPAY | PROVIDERS: PCP Nurse Practitioner Family; Visit Provider Surgery | DX: C20 Malignant neoplasm of rectum (principal); Z95.828 Presence of other vascular implants and grafts | CPT/HCPCS: 99214 ==

== ENCOUNTER 2024-07-25 09:30 | Oncology outpatient (recurring) (ONCR) | payer MEDICARE, MEDICAID, SELFPAY ==
--- NOTE | 2024-07-08 13:45 | CTR_ITS ---
PROCEDURE INFORMATION: Exam: CT Chest With Contrast; Diagnostic Exam date and time: 07/08/2024 2:52 PM Age: 34 years old Clinical indication: Condition or disease; Prior surgery; Surgery date: 1-6 months; Surgery type: Port; Patient HX: Newly diagnosed rectal cancer TECHNIQUE: Imaging protocol: Diagnostic computed tomography of the chest with contrast. Axial, coronal and sagittal reformatted images were created and reviewed. Radiation optimization: All CT scans at this facility use at least one of these dose optimization techniques: automated exposure control; mA and/or kV adjustment per patient size (includes targeted exams where dose is matched to clinical indication); or iterative reconstruction. Contrast material: OMNI 350; Contrast volume: 100 ml; Contrast route: INTRAVENOUS (IV); COMPARISON: CR XR chest 1V portable [id number] 06/23/2024 8:22 AM RADIATION DOSE METRICS: Total DLP (mGy-cm): 1894.86 FINDINGS: Tubes, catheters and devices: Left-sided chest port in place. Lungs: Unremarkable. No consolidation. No mass. Pleural spaces: Unremarkable. No pneumothorax. No pleural effusion. Heart: Unremarkable. No cardiomegaly. No pericardial effusion. Lymph nodes: No pathologically enlarged lymph nodes. Vasculature: Unremarkable. No aortic aneurysm. Bones/joints: No acute osseous abnormality. Osteopenia. Mild degenerative changes. Soft tissues: Unremarkable. PROCEDURE INFORMATION: Exam: CT Abdomen And Pelvis With Contrast Exam date and time: 07/08/2024 2:52 PM Age: 34 years old Clinical indication: Condition or disease; Prior surgery; Surgery date: 1-6 months; Surgery type: Port; Patient HX: Newly diagnosed rectal cancer TECHNIQUE: Imaging protocol: Computed tomography of the abdomen and pelvis with contrast. Axial, coronal and sagittal reformatted images were created and reviewed. Radiation optimization: All CT scans at this facility use at least one of these dose optimization techniques: automated exposure control; mA and/or kV adjustment per patient size (includes targeted exams where dose is matched to clinical indication); or iterative reconstruction. Contrast material: OMNI 350; Contrast volume: 100 ml; Contrast route: INTRAVENOUS (IV); COMPARISON: CR XR abdomen 3V [id number] 05/21/2024 11:32 AM RADIATION DOSE METRICS: Total DLP (mGy-cm): 1894.86 FINDINGS: Liver: Mild hepatomegaly. Diffuse hepatic steatosis. Gallbladder and biliary ducts: Status post cholecystectomy. No biliary ductal dilatation. Pancreas: Unremarkable. Spleen: Unremarkable. Adrenal glands: Normal. No mass. Kidneys and ureters: No mass. No radiodense calculi. No hydronephrosis. Stomach and bowel: Irregular masslike rectal wall thickening, likely related to the patient's known malignancy. No obstruction. No pneumatosis. Appendix: Normal. Intraperitoneal space: No free fluid. No organized fluid collection. No free air. Vasculature: Unremarkable. No aneurysm. Lymph nodes: Small mesenteric lymph nodes, nonspecific in appearance. No pathologically enlarged lymph nodes. Urinary bladder: Unremarkable as visualized. Reproductive: Unremarkable. Bones/joints: No acute osseous abnormality. Osteopenia. Mild degenerative changes. Soft tissues: Tiny, fat containing umbilical hernia. CT/CT chest abdpel w/*[id number] IMPRESSION: 1. No CT evidence of acute intrathoracic pathology. 2. Additional findings, as above. IMPRESSION: 1. Irregular masslike rectal wall thickening, likely related to the patient's known malignancy. 2. Additional findings, as above.
[2024-07-08] MEDS: iohexol 350 mg/mL 500 mL Btl (per mL) PO (14:51)
[2024-07-08] MEDS: iohexol 350 mg/mL 500 mL Btl (per mL) IV (15:10)
[2024-07-17] MEDS: iron sucrose 300 MG in sodium chloride 0.9% (100 ml) 100 ML 230 MG IV (11:10)
--- NOTE | 2024-07-17 11:19 | PC.NURSE ---
Pt in infusion room for venofer infusion. Pts incision site to port is red with a greenish/yellow area to it. Port looks like it could be infected. Sent pt to Dr. Barrett's office. Per Dr. Horn note, port is not infected, can be accessed. JW
[2024-07-17 11:59] VITALS: BP 125/84; PULSE 78; RESP 15; TEMP 36.6; O2SAT 95
[2024-07-23 07:42] LABS: Basophils # 0.1 10^3/uL (0.0-0.1); Eosinophils # 1.4 10^3/uL (0.0-0.8); Eosinophils % 10.3 %; Hematocrit 36.1 % (37-53); Lymphocytes # 2.9 10^3/uL (0.8-4.8); Lymphocytes % 21.2 %; Mean Corpuscular HGB Conc 30.2 g/dL (30-55); Mean Corpuscular Volume 76.3 fl (82-101); Mean Platelet Volume 8.6 fL (7.4-10.4); Monocytes # 0.9 10^3/uL (0.2-0.9); Monocytes % 6.3 %; Neutrophils # 8.16 10^3/uL (1.8-7.7); Neutrophils % 60.6 %; Nucleated Red Blood Cells % 0 %; Platelet Count 460 10^3/cmm (157-399); Red Blood Count 4.73 10^6/uL (3.85-5.65); Red Cell Distribution Width 15.9 % (12.1-15.1); White Blood Count 13.47 10^3/uL (3.29-11.43)
[2024-07-23 08:08] LABS: Carcinoembryonic Antigen 1.9 ng/mL (0.0-4.7)
[2024-07-23 08:20] LABS: Alanine Aminotransferase 58 U/L (0-41); Alkaline Phosphatase 70 U/L (40-130); Anion Gap 15.9 (5-19); Aspartate Amino Transferase 63 U/L (0-40); Blood Urea Nitrogen 19 mg/dL (6-20); Calcium 8.8 mg/dL (8.5-10.5); Carbon Dioxide 24 mmol/L (22-29); Chloride 102 mmol/L (98-107); Glomerular Filtration Rate 153.3 mL/min (90-130); Glucose 121 mg/dL (65-115); Lactate Dehydrogenase 154 U/L (135-225); Osmolality Calculated 290 mOsm/kg (285-295); Potassium 3.9 mmol/L (3.5-5.1); Sodium 138 mmol/L (136-145); Total Bilirubin 0.4 mg/dL (0.15-1.2)
[2024-07-23] MEDS: dextrose 5% 250 ML 75 ML IV (09:50)
[2024-07-23] MEDS: palonosetron 0.25 mg/5 mL SDV IVP (09:53)
[2024-07-23] MEDS: dexamethasone 4 mg/mL INJ 5 mL 12 MG IVP (09:56)
[2024-07-23] MEDS: DEXTROSE 5% IV ×2 (10:43→10:44)
[2024-07-23] MEDS: OXALIPLATIN IV (10:43)
[2024-07-23] MEDS: LEUCOVORIN IV (10:44)
[2024-07-23] MEDS: fluorouraciL 50 mg/ml MDV 100 mL 1000 MG IVP (13:04)
[2024-07-23] MEDS: SODIUM CHLORIDE IV (13:18)
[2024-07-23] MEDS: FLUOROURACIL IV (13:18)
[2024-07-23] MEDS: ELASTOMERIC PUMP PUMP IV (13:18)
[2024-07-23 13:30] VITALS: BP 162/89; PULSE 89; RESP 17; TEMP 36.4; O2SAT 97
[2024-07-23 14:01] LABS: Magnesium 1.9 mg/dL (1.7-2.3)
[2024-07-25 09:55] VITALS: BP 115/113; PULSE 91; RESP 17; TEMP 35.9; O2SAT 97
== END 2024-07-25 23:59 | disposition home or self-care (01) ==
PROVIDERS: Internal Medicine; Nurse Practitioner; PCP Nurse Practitioner Family; Visit Provider Internal Medicine Medical Oncology
DX: Z53.9 Procedure and treatment not carried out, unspecified reason; Z45.1 Encounter for adjustment and management of infusion pump
CPT/HCPCS: 71260; 74177; 80053; 82378; 83615; 83735; 85025; 96365; 96366; 96375; 96409; 96413; 96415; 96416; 96523; 99212; 99213; 99214; J0640; J1100; J1756; J2469; J7060; J9190; J9263

== ENCOUNTER 2024-08-15 08:34 | Oncology outpatient (recurring) (ONCR) | payer MEDICARE, MEDICAID, SELFPAY ==
[2024-07-30 08:29] LABS: Basophils % 0.5 %; Eosinophils # 0.4 10^3/uL (0.0-0.8); Eosinophils % 4.8 %; Hematocrit 38.8 % (37-53); Lymphocytes # 1.7 10^3/uL (0.8-4.8); Lymphocytes % 20.1 %; Mean Corpuscular HGB Conc 31.2 g/dL (30-55); Mean Corpuscular Hemoglobin 23.1 pg (27-33); Mean Platelet Volume 8.8 fL (7.4-10.4); Monocytes # 0.5 10^3/uL (0.2-0.9); Monocytes % 6.3 %; Neutrophils # 5.57 10^3/uL (1.8-7.7); Neutrophils % 67.8 %; Nucleated Red Blood Cells % 0 %; Platelet Count 395 10^3/cmm (157-399); Red Blood Count 5.24 10^6/uL (3.85-5.65); Red Cell Distribution Width 16.6 % (12.1-15.1); White Blood Count 8.21 10^3/uL (3.29-11.43)
[2024-07-30 08:42] LABS: Alanine Aminotransferase 89 U/L (0-41); Albumin Level 3.9 g/dL (3.5-5.2); Alkaline Phosphatase 56 U/L (40-130); Anion Gap 16.2 (5-19); Aspartate Amino Transferase 122 U/L (0-40); Blood Urea Nitrogen 14 mg/dL (6-20); Calcium 8.6 mg/dL (8.5-10.5); Carbon Dioxide 25 mmol/L (22-29); Chloride 94 mmol/L (98-107); Creatinine Clr Calc Pharmacy 160.3467; Globulin 3.2 g/dL (1.3-4.6); Glucose 164 mg/dL (65-115); Lactate Dehydrogenase 298 U/L (135-225); Osmolality Calculated 278 mOsm/kg (285-295); Potassium 3.2 mmol/L (3.5-5.1); Sodium 132 mmol/L (136-145); Total Bilirubin 0.5 mg/dL (0.15-1.2); Total Protein 7.1 g/dL (6.6-8.7)
[2024-07-30] MEDS: IRON SUCROSE IV (10:58)
[2024-07-30] MEDS: SODIUM CHLORIDE 0.9% IV (10:58)
[2024-07-30] MEDS: sodium chloride 0.9% 1,000 ML 999 ML IV (11:05)
[2024-07-30 12:25] VITALS: BP 136/76; PULSE 88; RESP 18; TEMP 37.1; O2SAT 95
[2024-08-06 09:05] LABS: Basophils # 0.1 10^3/uL (0.0-0.1); Basophils % 0.6 %; Eosinophils # 0.5 10^3/uL (0.0-0.8); Eosinophils % 6.5 %; Hematocrit 38.8 % (37-53); Lymphocytes # 2.6 10^3/uL (0.8-4.8); Lymphocytes % 32.5 %; Mean Corpuscular HGB Conc 30.9 g/dL (30-55); Mean Corpuscular Volume 74.3 fl (82-101); Mean Platelet Volume 8.2 fL (7.4-10.4); Monocytes % 12.2 %; Neutrophils # 3.78 10^3/uL (1.8-7.7); Neutrophils % 47.8 %; Nucleated Red Blood Cells % 0 %; Platelet Count 413 10^3/cmm (157-399); Red Blood Count 5.22 10^6/uL (3.85-5.65); Red Cell Distribution Width 18.5 % (12.1-15.1)
[2024-08-06 09:31] LABS: Alanine Aminotransferase 68 U/L (0-41); Albumin Level 3.8 g/dL (3.5-5.2); Alkaline Phosphatase 69 U/L (40-130); Anion Gap 13.4 (5-19); Aspartate Amino Transferase 58 U/L (0-40); Blood Urea Nitrogen 10 mg/dL (6-20); Carbon Dioxide 29 mmol/L (22-29); Chloride 101 mmol/L (98-107); Creatinine Clr Calc Pharmacy 207.2942; Globulin 3.5 g/dL (1.3-4.6); Glomerular Filtration Rate 128.3 mL/min (90-130); Glucose 198 mg/dL (65-115); Magnesium 1.7 mg/dL (1.7-2.3); Osmolality Calculated 295 mOsm/kg (285-295); Potassium 3.4 mmol/L (3.5-5.1); Sodium 140 mmol/L (136-145); Total Protein 7.3 g/dL (6.6-8.7)
[2024-08-06 09:54] VITALS: BP 122/80; PULSE 88; RESP 18; TEMP 36.4; O2SAT 98
[2024-08-06] MEDS: LORazepam 0.5 mg Tablet 1 MG PO (09:57)
[2024-08-06] MEDS: dexamethasone 4 mg/mL INJ 5 mL 12 MG IVP (10:13)
[2024-08-06] MEDS: palonosetron 0.25 mg/5 mL SDV IVP (10:14)
[2024-08-06] MEDS: dextrose 5% 250 ML 70 ML IV (10:19)
[2024-08-06] MEDS: LEUCOVORIN IV (11:07)
[2024-08-06] MEDS: DEXTROSE 5% IV ×2 (11:07)
[2024-08-06] MEDS: OXALIPLATIN IV (11:07)
[2024-08-06] MEDS: fluorouraciL 50 mg/ml MDV 100 mL 1000 MG IVP (13:38)
[2024-08-06] MEDS: ELASTOMERIC PUMP PUMP IV (13:48)
[2024-08-06] MEDS: FLUOROURACIL IV (13:48)
[2024-08-06] MEDS: SODIUM CHLORIDE IV (13:48)
[2024-08-06 14:00] VITALS: BP 139/87; PULSE 73; RESP 17; TEMP 36.8; O2SAT 95
[2024-08-08 09:13] VITALS: BP 142/94; PULSE 82; RESP 18; TEMP 36.1; O2SAT 97
[2024-08-08] MEDS: IRON SUCROSE IV (09:45)
[2024-08-08] MEDS: SODIUM CHLORIDE 0.9% IV (09:45)
[2024-08-08 11:14] VITALS: BP 139/92; PULSE 84; RESP 17; TEMP 36.3; O2SAT 98
[2024-08-15] MEDS: SODIUM CHLORIDE 0.9% IV (09:00)
[2024-08-15] MEDS: IRON SUCROSE IV (09:00)
[2024-08-15 09:11] VITALS: PULSE 123; RESP 19; TEMP 36.7; O2SAT 97
[2024-08-15 09:30] VITALS: BP 188/130; PULSE 119; RESP 18; O2SAT 96
[2024-08-15 09:50] VITALS: BP 174/118; PULSE 114; RESP 18; O2SAT 96
[2024-08-15] MEDS: spironolactone 25 mg Tablet 50 MG PO (10:16)
[2024-08-15] MEDS: propranolol 40 mg Tablet PO (10:16)
[2024-08-15 11:10] VITALS: BP 164/110; PULSE 114; RESP 18; O2SAT 96
--- NOTE | 2024-08-15 11:51 | PC.NURSE ---
Patient and his mother indicated that he had not taken his morning medications this morning. Propranolol 40 mg Spironalactone 50 mg PO, ordered by Adriana Fleming NP in clinic with minimal results. Patient and his mother were encouraged to seek further medical treatment in the ER. Patient was transported to [facility] ER via wheelchair, his mother accompanied him.
== END 2024-08-15 11:31 | disposition home or self-care (01) ==
PROVIDERS: Internal Medicine; Nurse Practitioner; PCP Nurse Practitioner Family; Visit Provider Internal Medicine Medical Oncology
DX: C20 Malignant neoplasm of rectum (principal); Z79.899 Other long term (current) drug therapy; D50.9 Iron deficiency anemia, unspecified
CPT/HCPCS: 80053; 83615; 83735; 85025; 96365; 96366; 96375; 96409; 96413; 96415; 96416; 96523; 99213; 99214; J0640; J1100; J1756; J2469; J7030; J7060; J9190; J9263

== ENCOUNTER 2024-08-15 11:31 | Emergency (ER) | payer MEDICARE, MEDICAID, SELFPAY ==
[2024-08-15 11:32] VITALS: BP 171/118; PULSE 107; RESP 16; TEMP 36.5; O2SAT 99; BMI 48.7
--- NOTE | 2024-08-15 11:42 | XR_ITS ---
WS: [id number] Exam: XR chest 1V portable [id number] Date/Time of Exam: 08/15/2024 11:58 AM Reason For Exam: hypertension Comparison 06/23/2024. Lungs are fully inflated and clear. Normal cardiomediastinal silhouette. A LEFT subclavian Port-A-Cath is noted ending in the lower one third of the SVC in good position. Bony structures are intact. XR/XR chest 1V portable [id number] IMPRESSION: 1. Negative chest.
--- NOTE | 2024-08-15 12:31 | W.ED.GENADLT ---
HPI - General Adult General: Chief complaint: General Medical Stated complaint: uncontrolled hypertension (sent by clinic) Time Seen by Provider: 08/15/24 12:19 History of Present Illness: This is a 34-year-old man with a history of obesity, hypertension, bipolar disorder, hypothyroidism, hyperlipidemia, ADHD and Asperger's and rectal cancer who is currently being treated by oncology who presents emergency room with hypertension from the oncology clinic. He currently has no symptoms. No headache. No vision changes. No chest pain. No shortness of breath. No cough. No fevers. No abdominal pain. No nausea or vomiting. No neurosymptoms. Also of note the patient did not take his blood pressure medication this morning Related Data Home Medications ?Medication ?Instructions ?Recorded ?Confirmed ibuprofen 800 mg tablet 800 mg PO Q8H PRN Pain 01/13/22 08/15/24 Held on 06/23/24. Instructions: Resume on 06/25/24. finasteride 1 mg tablet 1 mg PO DAILY 05/07/23 08/15/24 hydroxyzine HCl 10 mg tablet 10 mg PO BID PRN Itching 06/02/24 08/15/24 albuterol sulfate 2.5 mg/3 mL 2.5 mg inhalation Q6H PRN 08/15/24 08/15/24 (0.083 %) solution for nebulization Shortness Of Breath cholecalciferol (vitamin D3) 50 50 mcg PO QPM 08/15/24 08/15/24 mcg (2,000 unit) capsule lorazepam 1 mg tablet 1 mg PO Q6H PRN aniety 08/15/24 08/15/24 losartan 25 mg tablet 25 mg PO DAILY 08/15/24 08/15/24 propranolol 40 mg tablet 40 mg PO BID 08/15/24 08/15/24 rimegepant 75 mg disintegrating 75 mg PO .QOD 08/15/24 08/15/24 tablet (Nurtec ODT) Previous Rx's ?Medication ?Instructions ?Recorded estradiol 2 mg tablet 2 mg PO BID 30 days #60 tabs 12/14/21 levothyroxine 100 mcg capsule 100 mcg PO DAILY #100 caps 05/08/24 pantoprazole 40 mg tablet,delayed 40 mg PO BID 6 weeks #84 tabs 06/04/24 release lidocaine-prilocaine 2.5 %-2.5 % 1 applic topical .COMPLEX #30 grams 07/08/24 topical cream ondansetron HCl 4 mg tablet 4 mg PO Q6H PRN nausea and 07/17/24 vomiting #30 tabs prochlorperazine maleate 10 mg 10 mg PO Q4H PRN mild nausea #30 07/17/24 tablet (Compazine) tabs ipratropium 20 mcg-albuterol 100 1 puff inhalation QID PRN sob #4 07/30/24 mcg/actuation mist for inhalation grams (Combivent Respimat) spironolactone 50 mg tablet 50 mg PO QAM for swelling #30 tabs 08/06/24 alprazolam 0.25 mg tablet 0.25 mg PO TID PRN anxiety #90 tabs 08/08/24 sumatriptan succinate 50 mg tablet See Rx Instructions .Route 08/11/24 .COMPLEX #10 tabs Allergies Allergy/AdvReac Type Severity Reaction Status Date / Time cefaclor (From [facility]) Allergy Intermediate rash Verified 08/06/24 09:00 cefadroxil (From Duricef) Allergy Intermediate rash Verified 08/06/24 09:00 penicillin G benethamine Allergy Intermediate rash Verified 08/06/24 09:00 (benethamine penicillin) Penicillins Allergy Intermediate rash Verified 08/06/24 09:00 Review of Systems Narrative: Constitutional symptoms: Negative except as documented in HPI. Skin symptoms: Negative except as documented in HPI. Eye symptoms: Negative except as documented in HPI. ENMT symptoms: Negative except as documented in HPI. Respiratory symptoms: Negative except as documented in HPI. Cardiovascular symptoms: Negative except as documented in HPI. Gastrointestinal symptoms: Negative except as documented in HPI. Genitourinary symptoms: Negative except as documented in HPI. Musculoskeletal symptoms: Negative except as documented in HPI. Neurologic symptoms: Negative except as documented in HPI. Psychiatric symptoms: Negative except as documented in HPI. Endocrine symptoms: Negative except as documented in HPI. PFS ED PFSH: Medical History Port-A-Cath in place 06/23/24 Dr Barrett Malabsorption syndrome Iron (Fe) deficiency anemia Leukocytosis Rectal bleeding Anxiety Upper respiratory infection Migraine Cerumen impaction Acute bacterial sinusitis Dermatitis Medication management Essential hypertension, benign Cough Lower respiratory tract infection Bipolar disorder, unspecified Headache Hypothyroid Nasal bleeding Vitamin D deficiency Anemia Mixed hyperlipidemia Environmental and seasonal allergies Bipolar 2 disorder ADHD (attention deficit hyperactivity disorder) Asperger's disorder Surgical History History of cholecystectomy History of tonsillectomy and adenoidectomy Social History Smoking and tobacco/nicotine status: never used tobacco/nicotine Second hand smoke exposure: No Alcohol intake: never Physical Exam Narrative: EXAM NARRATIVE: General: Alert, no acute distress. Skin: Warm, dry. Head: Normocephalic, atraumatic. Neck: Supple, trachea midline. Eye: Extraocular movements are intact. Ears, nose, mouth and throat: mucosa moist. Cardiovascular: Regular, Normal peripheral perfusion. Left-sided catheter is in place. Respiratory: Lungs are clear to auscultation, respirations are non-labored, breath sounds are equal, Symmetrical chest wall expansion. Gastrointestinal: Soft, Nontender, Non distended Musculoskeletal: Normal ROM, no deformity. Neurological: Alert and oriented, No focal neurological deficit observed. Psychiatric: Cooperative, appropriate mood & affect. Course Vital Signs: Vital signs: Vital Signs Temperature 97.7 F 08/15/24 11:32 Pulse Rate 107 H 08/15/24 11:32 Respiratory Rate 16 08/15/24 11:32 Blood Pressure 171/118 08/15/24 11:32 Pulse Oximetry 99 08/15/24 11:32 Oxygen Delivery Me thod Room Air 08/15/24 11:32 MDM - General Adult Medical Decision Making Medical decision making: Differential diagnosis including but not limited to and based on the above HPI, review of systems and physical exam: Patient presents with hypertension: Essential hypertension. Stroke. acute coronary syndrome. kidney failure. congestive heart failure. anxiety Orders placed to evaluate differential diagnosis based on the above differential, HPI and physical exam Chest x-ray: Left-sided subclavian catheter in place. No acute process. No infiltrate. No pneumothorax. This was reviewed and interpreted by myself the emergency room physician. I also reviewed the radiology report. Lab Review: Laboratory results were reviewed and interpreted by myself the emergency room physician. No leukocytosis. No anemia. No renal failure. Troponin is negative. I reviewed the patient's medical record. Reexamination: Patient remained stable. No increased work of breathing. No altered mental status. No focal motor deficits. Assessment and plan: Hypertension ?No evidence of any acute process at this time. No heart issues. No infection. He needs to go home and take his blood pressure medications. - Discharged home - Discussed plan with patient. Answered any questions. - Evaluation and treatment of this problem were appropriate in the emergency setting. Lab Data 08/15/24 12:23 08/15/24 12:23 Radiology Impressions Chest X-Ray 08/15/24 11:42 IMPRESSION: 1. Negative chest. Laboratory Results WBC 8.77 10^3/uL (3.29-11.43) 08/15/24 12:23 RBC 4.78 10^6/uL (3.85-5.65) 08/15/24 12:23 Hgb 11.20 g/dL (11.27-16.99) L 08/15/24 12:23 Hct 35.8 % (37-53) L 08/15/24 12:23 MCV 74.9 fl (82-101) L 08/15/24 12:23 MCH 23.4 pg (27-33) L 08/15/24 12:23 MCHC 31.3 g/dL (30-55) 08/15/24 12:23 RDW 19.9 % (12.1-15.1) H 08/15/24 12:23 Plt Count 308 10^3/cmm (157-399) 08/15/24 12:23 MPV 8.5 fL (7.4-10.4) 08/15/24 12:23 Neut % (Auto) 52.3 % 08/15/24 12:23 Lymph % (Auto) 30.2 % 08/15/24 12:23 Long % (Auto) 10.5 % 08/15/24 12:23 Eos % (Auto) 5.8 % 08/15/24 12:23 Baso % (Auto) 0.7 % 08/15/24 12:23 Neut # (Auto) 4.59 10^3/uL (1.8-7.7) 08/15/24 12:23 Lymph # (Auto) 2.7 10^3/uL (0.8-4.8) 08/15/24 12:23 Long # (Auto) 0.9 10^3/uL (0.2-0.9) 08/15/24 12:23 Eos # (Auto) 0.5 10^3/uL (0.0-0.8) 08/15/24 12:23 Baso # (Auto) 0.1 10^3/uL (0.0-0.1) 08/15/24 12:23 Nucleated RBC % (auto) 0 % 08/15/24 12:23 Nucleated RBCs # 0.0 /100WBC 08/15/24 12:23 Sodium 139 mmol/L (136-145) 08/15/24 12:23 Potassium 3.3 mmol/L (3.5-5.1) L 08/15/24 12:23 Chloride 102 mmol/L (98-107) 08/15/24 12:23 Carbon Dioxide 25 mmol/L (22-29) 08/15/24 12:23 Anion Gap 15.3 (5-19) 08/15/24 12:23 BUN 11 mg/dL (6-20) 08/15/24 12:23 Creatinine 0.6 mg/dL (0.7-1.2) L 08/15/24 12:23 GFR Calculation 153.3 mL/min (90-130) H 08/15/24 12:23 Glucose 122 mg/dL (65-115) H 08/15/24 12:23 Calculated Osmolality 289 mOsm/kg (285-295) 08/15/24 12:23 Calcium 9.0 mg/dL (8.5-10.5) 08/15/24 12:23 Total Bilirubin 0.8 mg/dL (0.15-1.2) 08/15/24 12:23 AST 103 U/L (0-40) H 08/15/24 12:23 ALT 90 U/L (0-41) H 08/15/24 12:23 Alkaline Phosphatase 80 U/L (40-130) 08/15/24 12:23 Troponin T Baseline < 6 ng/L (0-15) 08/15/24 12:23 Total Protein 6.9 g/dL (6.6-8.7) 08/15/24 12:23 Albumin 3.8 g/dL (3.5-5.2) 08/15/24 12:23 Globulin 3.1 g/dL (1.3-4.6) 08/15/24 12:23 All radiology interpretation(s) finalized by discharge Discharge Plan Discharge Patient Disposition: Home Clinical Impression: Hypertension Condition: Stable Prescriptions: No Action estradiol 2 mg tablet 2 mg PO BID 30 Days Qty: 60 0RF finasteride 1 mg tablet 1 mg PO DAILY levothyroxine 100 mcg capsule 100 mcg PO DAILY Qty: 100 0RF Combivent Respimat 20-100 mcg/actuation mist 1 puff inhalation QID PRN (Reason: sob) Qty: 4 6RF lidocaine-prilocaine 2.5-2.5 % cream 1 applic topical .COMPLEX Qty: 30 2RF Rx Instructions: Apply quarter-size amount to port site 30 minutes prior to access; cover with cling wrap ondansetron HCl 4 mg tablet 4 mg PO Q6H PRN (Reason: nausea and vomiting) Qty: 30 3RF prochlorperazine maleate [Compazine] 10 mg tablet 10 mg PO Q4H PRN (Reason: mild nausea) Qty: 30 3RF spironolactone 50 mg tablet 50 mg PO QAM Qty: 30 4RF alprazolam 0.25 mg tablet 0.25 mg PO TID PRN (Reason: anxiety) Qty: 90 0RF sumatriptan succinate 50 mg tablet See Rx Instructions .ROUTE .COMPLEX Qty: 10 2RF Dose Instruction: TAKE ONE TABLET BY MOUTH AT ONSET of HEADACHE, if no RELIEF MAY REPEAT one tablet BY MOUTH AFTER AT least two hours. Max daily AMOUNT: FOUR TABLETS Rx Instructions: TAKE ONE TABLET BY MOUTH AT ONSET of HEADACHE, if no RELIEF MAY REPEAT one tablet BY MOUTH AFTER AT least two hours. Max daily AMOUNT: FOUR TABLETS hydroxyzine HCl 10 mg tablet 10 mg PO BID PRN (Reason: Itching) pantoprazole 40 mg tablet,delayed release (DR/EC) 40 mg PO BID 42 Days Qty: 84 1RF lorazepam 1 mg tablet 1 mg PO Q6H PRN (Reason: aniety) Nurtec ODT 75 mg tablet,disintegrating 75 mg PO .QOD propranolol 40 mg tablet 40 mg PO BID albuterol sulfate 2.5 mg /3 mL (0.083 %) solution for nebulization 2.5 mg inhalation Q6H PRN (Reason: Shortness Of Breath) losartan 25 mg tablet 25 mg PO DAILY cholecalciferol (vitamin D3) 50 mcg (2,000 unit) capsule 50 mcg PO QPM ibuprofen 800 mg tablet 800 mg PO Q8H PRN (Reason: Pain) Discharge Orders: Discharge ED (Routine); Ordered 08/15/24 Ordered By: Nancy Em Referrals: DAMIAN Viveros, [employer] AUTOMATION DEVELOPER [Primary Care Provider] - Discharge Diet: Usual diet Discharge Activity: Increase activity as tolerated Patient Instructions: Hypertension (ED), Opioid Safety, Pain Management Activity Restrictions/Additional Instructions: Thank you for choosing [facility] for your healthcare needs today. Please realize this is an emergency room and that we are providing you with a medical screening exam and this may not be complete and all inclusive of all the testing and or work up that you may need to determine your ailment or severity of your illness. You have been screened and evaluated and felt safe for discharge. Health conditions do change or evolve sometimes and as such it is important that you follow up with your Primary Doctor to be re checked, 3-5 days is a general good time frame for follow up. You are always welcome to return to the ED for re assessment if your symptoms are worsening or you have new concerns Print Language: Belgian Coding Level of Care Code ED Cras for Kelsey Espinoza
[2024-08-15 12:35] LABS: Basophils # 0.1 10^3/uL (0.0-0.1); Basophils % 0.7 %; Eosinophils # 0.5 10^3/uL (0.0-0.8); Eosinophils % 5.8 %; Hematocrit 35.8 % (37-53); Lymphocytes # 2.7 10^3/uL (0.8-4.8); Lymphocytes % 30.2 %; Mean Corpuscular HGB Conc 31.3 g/dL (30-55); Mean Corpuscular Hemoglobin 23.4 pg (27-33); Mean Corpuscular Volume 74.9 fl (82-101); Mean Platelet Volume 8.5 fL (7.4-10.4); Monocytes # 0.9 10^3/uL (0.2-0.9); Monocytes % 10.5 %; Neutrophils # 4.59 10^3/uL (1.8-7.7); Neutrophils % 52.3 %; Nucleated Red Blood Cells % 0 %; Platelet Count 308 10^3/cmm (157-399); Red Blood Count 4.78 10^6/uL (3.85-5.65); Red Cell Distribution Width 19.9 % (12.1-15.1); White Blood Count 8.77 10^3/uL (3.29-11.43)
--- NOTE | 2024-08-15 12:59 | PC.PHAR ---
Addendum entered by Nabila Mckoy 08/15/24 13:29: Nurse from Jade Viveros's office states pt is on Levothyroxine 100mcg daily. 75mcg has been discontinued and removed from chart. Original Note: Pt has newer order for lower strength Levothyroxine 75mcg daily last filled 06/23/24 30ds at [facility]. Pt states he ran out and went back to 100mcg tablet. [facility] states they sent refill requests several times without a response. The clinic they were contacting has been permanently closed since April 2024. Jade Viveros has moved to [facility]. Both strengths were left on pt chart since we do not know what strength he should be taking.
[2024-08-15 13:02] LABS: Alanine Aminotransferase 90 U/L (0-41); Albumin Level 3.8 g/dL (3.5-5.2); Alkaline Phosphatase 80 U/L (40-130); Anion Gap 15.3 (5-19); Aspartate Amino Transferase 103 U/L (0-40); Blood Urea Nitrogen 11 mg/dL (6-20); Carbon Dioxide 25 mmol/L (22-29); Chloride 102 mmol/L (98-107); Creatinine Clr Calc Pharmacy 256.3954; Globulin 3.1 g/dL (1.3-4.6); Glomerular Filtration Rate 153.3 mL/min (90-130); Glucose 122 mg/dL (65-115); Osmolality Calculated 289 mOsm/kg (285-295); Potassium 3.3 mmol/L (3.5-5.1); Sodium 139 mmol/L (136-145); Total Bilirubin 0.8 mg/dL (0.15-1.2); Total Protein 6.9 g/dL (6.6-8.7)
[2024-08-15 13:03] LABS: Troponin(5th) Baseline < 6 ng/L (0-15)
--- NOTE | 2024-08-15 13:42 | ECG_ITS ---
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
--- NOTE | 2024-08-15 13:46 | ECG_ITS ---
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
[2024-08-15 14:22] LABS: NT Pro B Type Natriuretic Pept 87 pg/mL (0-125)
[2024-08-15 14:36] VITALS: BP 140/102; PULSE 90; O2SAT 97
[2024-08-15 14:37] VITALS: BP 140/102; PULSE 90; O2SAT 97
== END 2024-08-15 14:38 | disposition home or self-care (01) ==
PROVIDERS: Emergency Provider Emergency Medicine; PCP Nurse Practitioner Family
DX: I10 Essential (primary) hypertension (principal); E78.2 Mixed hyperlipidemia; C20 Malignant neoplasm of rectum
CPT/HCPCS: 71045; 80053; 83880; 84484; 85025; 93005; 99285

== ENCOUNTER 2024-08-22 09:00 | Oncology outpatient (recurring) (ONCR) | payer MEDICARE, MEDICAID, SELFPAY ==
[2024-08-20 08:16] LABS: Basophils # 0.1 10^3/uL (0.0-0.1); Basophils % 0.7 %; Eosinophils # 0.7 10^3/uL (0.0-0.8); Eosinophils % 5.3 %; Hematocrit 41.3 % (37-53); Lymphocytes % 23.7 %; Mean Corpuscular Hemoglobin 23.9 pg (27-33); Mean Corpuscular Volume 77.2 fl (82-101); Mean Platelet Volume 9.1 fL (7.4-10.4); Monocytes # 1.4 10^3/uL (0.2-0.9); Monocytes % 11.1 %; Neutrophils # 7.27 10^3/uL (1.8-7.7); Neutrophils % 58.4 %; Nucleated Red Blood Cells % 0 %; Platelet Count 282 10^3/cmm (157-399); Red Blood Count 5.35 10^6/uL (3.85-5.65); White Blood Count 12.45 10^3/uL (3.29-11.43)
[2024-08-20 08:44] LABS: Alanine Aminotransferase 80 U/L (0-41); Albumin Level 4.1 g/dL (3.5-5.2); Alkaline Phosphatase 83 U/L (40-130); Anion Gap 18.2 (5-19); Aspartate Amino Transferase 72 U/L (0-40); Blood Urea Nitrogen 14 mg/dL (6-20); Calcium 9.7 mg/dL (8.5-10.5); Carbon Dioxide 24 mmol/L (22-29); Chloride 97 mmol/L (98-107); Creatinine Clr Calc Pharmacy 209.1842; Globulin 3.8 g/dL (1.3-4.6); Glomerular Filtration Rate 128.3 mL/min (90-130); Glucose 187 mg/dL (65-115); Lactate Dehydrogenase 176 U/L (135-225); Osmolality Calculated 285 mOsm/kg (285-295); Potassium 4.2 mmol/L (3.5-5.1); Sodium 135 mmol/L (136-145); Total Bilirubin 1.4 mg/dL (0.15-1.2); Total Protein 7.9 g/dL (6.6-8.7)
[2024-08-20] MEDS: ipratropium-albuterol 3 mL Neb INHALATION (10:02)
[2024-08-20] MEDS: dextrose 5% 250 ML 70 ML IV (10:04)
[2024-08-20] MEDS: dexamethasone 4 mg/mL INJ 5 mL 12 MG IVP (10:05)
[2024-08-20] MEDS: palonosetron 0.25 mg/5 mL SDV IVP (10:05)
[2024-08-20] MEDS: LEUCOVORIN IV (11:05)
[2024-08-20] MEDS: DEXTROSE 5% IV ×2 (11:05)
[2024-08-20] MEDS: OXALIPLATIN IV (11:05)
[2024-08-20] MEDS: fluorouraciL 50 mg/ml MDV 100 mL 1000 MG IVP (13:40)
[2024-08-20] MEDS: FLUOROURACIL IV (13:49)
[2024-08-20] MEDS: SODIUM CHLORIDE IV (13:49)
[2024-08-20] MEDS: ELASTOMERIC PUMP PUMP IV (13:49)
[2024-08-20 14:00] VITALS: BP 127/85; PULSE 93; RESP 17; TEMP 35.7; O2SAT 95
[2024-08-22] MEDS: SODIUM CHLORIDE 0.9% IV (08:21)
[2024-08-22] MEDS: IRON SUCROSE IV (08:21)
[2024-08-22 08:53] VITALS: BP 157/76; PULSE 84; TEMP 36.6; O2SAT 98
== END 2024-08-22 23:59 | disposition home or self-care (01) ==
PROVIDERS: PCP Nurse Practitioner Family; Visit Provider Internal Medicine
DX: Z53.9 Procedure and treatment not carried out, unspecified reason; C20 Malignant neoplasm of rectum; D50.9 Iron deficiency anemia, unspecified; Z45.1 Encounter for adjustment and management of infusion pump; Z79.899 Other long term (current) drug therapy
CPT/HCPCS: 80053; 83615; 85025; 96365; 96366; 96375; 96411; 96413; 96415; 96416; 96523; 99214; J0640; J1100; J1756; J2469; J7060; J9190; J9263

== ENCOUNTER 2024-09-05 07:40 | Oncology outpatient (recurring) (ONCR) | payer MEDICARE, MEDICAID, SELFPAY ==
[2024-09-03 08:02] LABS: Basophils # 0.1 10^3/uL (0.0-0.1); Basophils % 1.1 %; Eosinophils # 0.8 10^3/uL (0.0-0.8); Eosinophils % 6.7 %; Hematocrit 41.3 % (37-53); Lymphocytes # 3.2 10^3/uL (0.8-4.8); Lymphocytes % 27.9 %; Mean Corpuscular HGB Conc 31.7 g/dL (30-55); Mean Corpuscular Hemoglobin 24.8 pg (27-33); Mean Corpuscular Volume 78.2 fl (82-101); Mean Platelet Volume 8.6 fL (7.4-10.4); Monocytes # 1.2 10^3/uL (0.2-0.9); Monocytes % 10.7 %; Neutrophils # 6.05 10^3/uL (1.8-7.7); Nucleated Red Blood Cells % 0 %; Platelet Count 317 10^3/cmm (157-399); Red Blood Count 5.28 10^6/uL (3.85-5.65); White Blood Count 11.42 10^3/uL (3.29-11.43)
[2024-09-03 08:18] LABS: Alanine Aminotransferase 92 U/L (0-41); Albumin Level 4.2 g/dL (3.5-5.2); Alkaline Phosphatase 92 U/L (40-130); Anion Gap 16.6 (5-19); Aspartate Amino Transferase 85 U/L (0-40); Blood Urea Nitrogen 17 mg/dL (6-20); Calcium 9.4 mg/dL (8.5-10.5); Carbon Dioxide 25 mmol/L (22-29); Chloride 99 mmol/L (98-107); Glucose 146 mg/dL (65-115); Lactate Dehydrogenase 174 U/L (135-225); Osmolality Calculated 288 mOsm/kg (285-295); Potassium 3.6 mmol/L (3.5-5.1); Sodium 137 mmol/L (136-145); Total Bilirubin 1.4 mg/dL (0.15-1.2); Total Protein 8.2 g/dL (6.6-8.7)
[2024-09-03] MEDS: palonosetron 0.25 mg/5 mL SDV IVP (09:23)
[2024-09-03] MEDS: dexamethasone 4 mg/mL INJ 5 mL 12 MG IVP (09:23)
[2024-09-03] MEDS: dextrose 5% 250 ML 75 ML IV (09:23)
[2024-09-03] MEDS: DEXTROSE 5% IV ×2 (10:05→10:09)
[2024-09-03] MEDS: LEUCOVORIN IV (10:05)
[2024-09-03] MEDS: OXALIPLATIN IV (10:09)
[2024-09-03] MEDS: fluorouraciL 50 mg/ml MDV 100 mL 1000 MG IVP (12:51)
[2024-09-03] MEDS: FLUOROURACIL IV (13:04)
[2024-09-03] MEDS: ELASTOMERIC PUMP PUMP IV (13:04)
[2024-09-03] MEDS: SODIUM CHLORIDE IV (13:04)
[2024-09-03 13:20] VITALS: BP 133/84; PULSE 88; RESP 17; TEMP 35.9; O2SAT 97
[2024-09-05] MEDS: SODIUM CHLORIDE 0.9% IV (08:04)
[2024-09-05] MEDS: IRON SUCROSE IV (08:04)
[2024-09-05 08:39] VITALS: BP 145/101; PULSE 95; RESP 17; TEMP 36.2; O2SAT 97
== END 2024-09-22 23:59 | disposition home or self-care (01) ==
PROVIDERS: PCP Nurse Practitioner Family; Visit Provider Internal Medicine
DX: C20 Malignant neoplasm of rectum (principal); D50.9 Iron deficiency anemia, unspecified; Z79.899 Other long term (current) drug therapy; Z45.1 Encounter for adjustment and management of infusion pump
CPT/HCPCS: 80053; 83615; 85025; 96365; 96366; 96375; 96411; 96413; 96415; 96416; 96523; 99213; J0640; J1100; J1756; J2469; J7060; J9190; J9263

== ENCOUNTER 2024-10-22 08:00 | Oncology outpatient (recurring) (ONCR) | payer MEDICARE, MEDICAID, SELFPAY ==
[2024-09-24 07:58] LABS: Basophils # 0.1 10^3/uL (0.0-0.1); Basophils % 1.1 %; Eosinophils # 0.7 10^3/uL (0.0-0.8); Eosinophils % 6.6 %; Hematocrit 40.8 % (37-53); Lymphocytes # 3.9 10^3/uL (0.8-4.8); Lymphocytes % 35.1 %; Mean Corpuscular HGB Conc 31.9 g/dL (30-55); Mean Corpuscular Hemoglobin 26.1 pg (27-33); Mean Corpuscular Volume 81.8 fl (82-101); Mean Platelet Volume 9.1 fL (7.4-10.4); Monocytes # 1.1 10^3/uL (0.2-0.9); Monocytes % 9.4 %; Neutrophils % 46.2 %; Nucleated Red Blood Cells % 0 %; Platelet Count 342 10^3/cmm (157-399); Red Blood Count 4.99 10^6/uL (3.85-5.65); Red Cell Distribution Width 23.7 % (12.1-15.1); White Blood Count 11.24 10^3/uL (3.29-11.43)
[2024-09-24 08:26] LABS: Alanine Aminotransferase 65 U/L (0-41); Albumin Level 3.9 g/dL (3.5-5.2); Alkaline Phosphatase 84 U/L (40-130); Anion Gap 15.4 (5-19); Aspartate Amino Transferase 62 U/L (0-40); Blood Urea Nitrogen 8 mg/dL (6-20); Calcium 9.5 mg/dL (8.5-10.5); Carbon Dioxide 27 mmol/L (22-29); Chloride 99 mmol/L (98-107); Creatinine Clr Calc Pharmacy 209.3025; Globulin 3.5 g/dL (1.3-4.6); Glomerular Filtration Rate 128.3 mL/min (90-130); Glucose 132 mg/dL (65-115); Osmolality Calculated 286 mOsm/kg (285-295); Potassium 3.4 mmol/L (3.5-5.1); Sodium 138 mmol/L (136-145); Total Bilirubin 0.7 mg/dL (0.15-1.2); Total Protein 7.4 g/dL (6.6-8.7)
[2024-09-24 08:34] LABS: Lactate Dehydrogenase 240 U/L (135-225)
[2024-09-24] MEDS: palonosetron 0.25 mg/5 mL SDV IVP (09:51)
[2024-09-24] MEDS: dexamethasone 4 mg/mL INJ 5 mL 12 MG IVP (09:53)
[2024-09-24] MEDS: dextrose 5% 250 ML 75 ML IV (10:08)
[2024-09-24] MEDS: LEUCOVORIN IV (10:49)
[2024-09-24] MEDS: DEXTROSE 5% IV ×2 (10:49)
[2024-09-24] MEDS: OXALIPLATIN IV (10:49)
[2024-09-24] MEDS: fluorouraciL 50 mg/ml MDV 100 mL 1000 MG IVP (13:18)
[2024-09-24] MEDS: SODIUM CHLORIDE IV (13:26)
[2024-09-24] MEDS: ELASTOMERIC PUMP PUMP IV (13:26)
[2024-09-24] MEDS: FLUOROURACIL IV (13:26)
[2024-09-24 13:38] VITALS: BP 174/116; PULSE 95; TEMP 35.8; O2SAT 97
--- NOTE | 2024-09-24 13:42 | PC.NURSE ---
Spoke with Cuba Fleming NP regarding pts BP. QUALITY CONTROL PROJECTIONIST states to encourage pt to see primary physician regarding elevated BP. Pt states he forgets to take his BP medications occasionally. Educated pt to set an alarm reminding pt to take medications. Also educated pt that continuous elevated BP can increase heart issues.
[2024-10-08 08:51] LABS: Basophils # 0.1 10^3/uL (0.0-0.1); Basophils % 0.6 %; Eosinophils # 0.5 10^3/uL (0.0-0.8); Hematocrit 39.3 % (37-53); Lymphocytes # 1.9 10^3/uL (0.8-4.8); Lymphocytes % 22.4 %; Mean Corpuscular HGB Conc 32.1 g/dL (30-55); Mean Corpuscular Hemoglobin 27.2 pg (27-33); Mean Corpuscular Volume 84.7 fl (82-101); Mean Platelet Volume 8.7 fL (7.4-10.4); Monocytes # 0.7 10^3/uL (0.2-0.9); Monocytes % 8.2 %; Neutrophils # 5.29 10^3/uL (1.8-7.7); Neutrophils % 62.3 %; Nucleated Red Blood Cells % 0 %; Platelet Count 239 10^3/cmm (157-399); Red Blood Count 4.64 10^6/uL (3.85-5.65); Red Cell Distribution Width 20.3 % (12.1-15.1); White Blood Count 8.49 10^3/uL (3.29-11.43)
[2024-10-08 09:08] LABS: Alanine Aminotransferase 57 U/L (0-41); Albumin Level 3.9 g/dL (3.5-5.2); Alkaline Phosphatase 75 U/L (40-130); Anion Gap 18.4 (5-19); Aspartate Amino Transferase 56 U/L (0-40); Blood Urea Nitrogen 8 mg/dL (6-20); Calcium 8.9 mg/dL (8.5-10.5); Carbon Dioxide 22 mmol/L (22-29); Chloride 99 mmol/L (98-107); Creatinine Clr Calc Pharmacy 242.2836; Globulin 3.3 g/dL (1.3-4.6); Glomerular Filtration Rate 153.3 mL/min (90-130); Glucose 240 mg/dL (65-115); Osmolality Calculated 288 mOsm/kg (285-295); Potassium 3.4 mmol/L (3.5-5.1); Sodium 136 mmol/L (136-145); Total Bilirubin 1.3 mg/dL (0.15-1.2); Total Protein 7.2 g/dL (6.6-8.7)
[2024-10-08] MEDS: dextrose 5% 250 ML 75 ML IV (09:58)
[2024-10-08] MEDS: palonosetron 0.25 mg/5 mL SDV IVP (09:58)
[2024-10-08] MEDS: dexamethasone 4 mg/mL INJ 5 mL 12 MG IVP (10:04)
[2024-10-08] MEDS: LEUCOVORIN IV (10:58)
[2024-10-08] MEDS: DEXTROSE 5% IV ×2 (10:58)
[2024-10-08] MEDS: OXALIPLATIN IV (10:58)
[2024-10-08] MEDS: FLUOROURACIL IV (13:32)
[2024-10-08] MEDS: fluorouraciL 50 mg/ml MDV 100 mL 1000 MG IVP (13:32)
[2024-10-08] MEDS: ELASTOMERIC PUMP PUMP IV (13:32)
[2024-10-08] MEDS: SODIUM CHLORIDE IV (13:32)
[2024-10-08 13:51] VITALS: BP 149/89; PULSE 100; O2SAT 96
[2024-10-22 08:15] LABS: Basophils # 0.1 10^3/uL (0.0-0.1); Eosinophils # 0.4 10^3/uL (0.0-0.8); Eosinophils % 4.3 %; Hematocrit 41.7 % (37-53); Lymphocytes # 2.2 10^3/uL (0.8-4.8); Lymphocytes % 27.7 %; Mean Corpuscular HGB Conc 32.4 g/dL (30-55); Mean Corpuscular Hemoglobin 28.2 pg (27-33); Mean Corpuscular Volume 87.1 fl (82-101); Mean Platelet Volume 8.6 fL (7.4-10.4); Monocytes # 1.1 10^3/uL (0.2-0.9); Monocytes % 13.6 %; Neutrophils # 4.28 10^3/uL (1.8-7.7); Neutrophils % 52.9 %; Nucleated Red Blood Cells % 0 %; Platelet Count 268 10^3/cmm (157-399); Red Blood Count 4.79 10^6/uL (3.85-5.65); Red Cell Distribution Width 19.3 % (12.1-15.1); White Blood Count 8.09 10^3/uL (3.29-11.43)
[2024-10-22 08:47] LABS: Alanine Aminotransferase 85 U/L (0-41); Albumin Level 4.2 g/dL (3.5-5.2); Alkaline Phosphatase 89 U/L (40-130); Aspartate Amino Transferase 82 U/L (0-40); Blood Urea Nitrogen 13 mg/dL (6-20); Calcium 9.8 mg/dL (8.5-10.5); Carbon Dioxide 23 mmol/L (22-29); Chloride 99 mmol/L (98-107); Creatinine Clr Calc Pharmacy 206.5383; Globulin 3.7 g/dL (1.3-4.6); Glomerular Filtration Rate 128.3 mL/min (90-130); Glucose 184 mg/dL (65-115); Osmolality Calculated 287 mOsm/kg (285-295); Sodium 136 mmol/L (136-145); Total Bilirubin 1.7 mg/dL (0.15-1.2); Total Protein 7.9 g/dL (6.6-8.7)
[2024-10-22] MEDS: dextrose 5% 250 ML 75 ML IV (10:10)
[2024-10-22] MEDS: dexamethasone 4 mg/mL INJ 5 mL 12 MG IVP (10:13)
[2024-10-22] MEDS: palonosetron 0.25 mg/5 mL SDV IVP (10:20)
[2024-10-22] MEDS: oxaliplatin 192 MG in dextrose 5% 250 ML 144.2 MG IV (11:06)
[2024-10-22] MEDS: leucovorin 1,000 MG in dextrose 5% 250 ML 62.5 MG IV (11:06)
[2024-10-22] MEDS: fluorouraciL 50 mg/ml MDV 100 mL 1000 MG IVP (13:35)
[2024-10-22] MEDS: ELASTOMERIC PUMP PUMP IV (13:47)
[2024-10-22] MEDS: SODIUM CHLORIDE IV (13:47)
[2024-10-22] MEDS: FLUOROURACIL IV (13:47)
[2024-10-22 13:58] VITALS: BP 101/69; PULSE 94; O2SAT 96
== END 2024-10-22 23:59 | disposition home or self-care (01) ==
PROVIDERS: Nurse Practitioner Family; PCP Nurse Practitioner Family; Visit Provider Internal Medicine
DX: Z53.9 Procedure and treatment not carried out, unspecified reason; Z51.11 Encounter for antineoplastic chemotherapy; C20 Malignant neoplasm of rectum; J20.9 Acute bronchitis, unspecified; J42 Unspecified chronic bronchitis; R79.89 Other specified abnormal findings of blood chemistry; Z79.52 Long term (current) use of systemic steroids; D50.9 Iron deficiency anemia, unspecified; D75.839 Thrombocytosis, unspecified; F41.9 Anxiety disorder, unspecified; R74.01 Elevation of levels of liver transaminase levels; E87.6 Hypokalemia; F64.0 Transsexualism; F84.5 Asperger's syndrome; Z95.828 Presence of other vascular implants and grafts; Z79.631 Long term (current) use of antimetabolite agent; Z79.890 Hormone replacement therapy; E66.9 Obesity, unspecified; Z68.41 Body mass index [BMI] 40.0-44.9, adult; Z79.899 Other long term (current) drug therapy
CPT/HCPCS: 80053; 83615; 85025; 96368; 96375; 96411; 96413; 96415; 96416; 96417; 99213; 99214; J0640; J1100; J2469; J7060; J9190; J9263

== ENCOUNTER 2024-11-05 07:50 | Oncology outpatient (recurring) (ONCR) | payer MEDICARE, MEDICAID, SELFPAY ==
[2024-11-05 08:47] LABS: Basophils # 0.1 10^3/uL (0.0-0.1); Basophils % 1.3 %; Eosinophils # 0.6 10^3/uL (0.0-0.8); Hematocrit 40.6 % (37-53); Lymphocytes # 3.1 10^3/uL (0.8-4.8); Lymphocytes % 35.6 %; Mean Corpuscular HGB Conc 32.3 g/dL (30-55); Mean Corpuscular Hemoglobin 28.2 pg (27-33); Mean Corpuscular Volume 87.5 fl (82-101); Mean Platelet Volume 8.7 fL (7.4-10.4); Monocytes # 1.2 10^3/uL (0.2-0.9); Monocytes % 14.3 %; Neutrophils % 41.6 %; Nucleated Red Blood Cells % 0 %; Platelet Count 254 10^3/cmm (157-399); Red Blood Count 4.64 10^6/uL (3.85-5.65); Red Cell Distribution Width 17.4 % (12.1-15.1); White Blood Count 8.66 10^3/uL (3.29-11.43)
[2024-11-05 09:20] LABS: Carcinoembryonic Antigen 1.9 ng/mL (0.0-4.7)
[2024-11-05 09:31] LABS: Alanine Aminotransferase 62 U/L (0-41); Albumin Level 3.9 g/dL (3.5-5.2); Alkaline Phosphatase 87 U/L (40-130); Anion Gap 14.5 (5-19); Aspartate Amino Transferase 64 U/L (0-40); Blood Urea Nitrogen 8 mg/dL (6-20); Calcium 9.4 mg/dL (8.5-10.5); Carbon Dioxide 25 mmol/L (22-29); Chloride 103 mmol/L (98-107); Creatinine Clr Calc Pharmacy 207.2942; Globulin 3.7 g/dL (1.3-4.6); Glomerular Filtration Rate 128.3 mL/min (90-130); Glucose 115 mg/dL (65-115); Osmolality Calculated 287 mOsm/kg (285-295); Potassium 3.5 mmol/L (3.5-5.1); Sodium 139 mmol/L (136-145); Total Bilirubin 1.4 mg/dL (0.15-1.2); Total Protein 7.6 g/dL (6.6-8.7)
[2024-11-05] MEDS: dexamethasone 4 mg/mL INJ 5 mL 12 MG IVP (11:24)
[2024-11-05] MEDS: dextrose 5% 250 ML 75 ML IV (11:24)
[2024-11-05] MEDS: palonosetron 0.25 mg/5 mL SDV IVP (11:28)
[2024-11-05] MEDS: famotidine 20 mg/2 mL INJ IVP (11:30)
[2024-11-05] MEDS: leucovorin 1,000 MG in dextrose 5% 250 ML 62.5 MG IV (11:45)
[2024-11-05] MEDS: DEXTROSE 5% IV (11:46)
[2024-11-05] MEDS: OXALIPLATIN IV (11:46)
--- NOTE | 2024-11-05 11:53 | N.ONRAD NP_ITS ---
Radiation Oncology New Patient Visit Patient: Marcio Bhakta MR#: [id number] : 1990 Age: 34 Sex: Male Dictated by: Arun Hayden DO/GRADY Date of Service: 11/05/2024 Referring Physician(s) : Dr. Hatch Diagnosis: C20 - malignant neoplasm of rectum, Diagnosed 06/04/2024 (active), PRIOR ACTIVE RECTAL BLEEDING, Posterior Rectal Mass 4.5 cm from AV, ADENOCARCINOMA rectal biopsy with contamination transfer colon BX,MRI PELVIS 07/21/2024 notes a mass 5.2 cm from the AV with mild penetration beyond the muscularis propria posteriorly, CEA 1.9, FOLFOX x 9 LD 11/19/2024, dose reduction of oxaliplatin by 10% after C1 due to hand/foot neuropathy, DEVELOPMENT INTERN starting 12/01/2024, mild use of marijuana QOD, ASPERGER???S SYN,GENGER TRANSITION SINCE 2021 (ESTRADIOL, PROGESTRONE, FINASTRIDE), VINITA 11/05/2024 ??? MASS. STAGE: [id number] ICD-10: C20 Radiotherapy to date: Summary > No prior radiation therapy. Chief Complaint / History of Present Illness: This is a agitated 34-year-old white male who has a history of Asperger's Syndrome as well as gender transformation M2F. His gender affirmation has been in effect since hormones started in 2021 consisting of estradiol, Progesterone, Finasteride. Patient noted intermittent rectal bleeding since January 2024. He has a history of rectal instrumentation x 2 and thought to have rectal injury only. Colonoscopy on 06/04/2024 showed a posterior rectal mass at around 4.5 cm from the anal verge. It was actively bleeding at that time. CT C/A/P on 07/08/2024 shows no evidence of acute intrathoracic pathology. An irregular masslike rectal wall thickening was noted MRI PELVIS on 07/21/2024 reported no evidence of disease outside the rectal area. A 5.2 cm mass involving the lower rectum with mild penetration beyond the muscularis propria posteriorly was noted. He was MRI stage T3c N0. Patient underwent neoadjuvant FOLFOX x 9 with LD B and 11/19/2024. Most recent labs were reported normal with a CEA of 1.9. Plan is to commence CRRT on 12/01/2024. Current Medications: 1 Plus 1. albuterol sulfate 2.5 mg (3 mL) inhalation Q6H PRN alprazolam 0.25 mg PO TID PRN cholecalciferol (vitamin D3) 50 mcg PO QPM doxycycline hyclate 100 mg PO BID 10 days estradiol 2 mg PO BID 30 days finasteride 1 mg PO DAILY hydrocortisone 1% 1 applic topical BID PRN hydroxyzine HCl 10 mg PO BID PRN ibuprofen 800 mg PO Q8H PRN Held on 06/23/24. Instructions: Resume on 06/25/24. ipratropium-albuterol 20-100 mcg/actuation (Combivent Respimat) 1 puff inhalation QID PRN levothyroxine 100 mcg PO DAILY lidocaine-prilocaine 2.5-2.5 % Apply quarter-size amount to port site 30 minutes prior to access; cover with cling wrap lorazepam 1 mg PO Q6H PRN losartan 25 mg PO DAILY [Nebulizer As directed] nystatin-triamcinolone 100,000-0.1 unit/g-% 1 applic topical TID ondansetron HCl 4 mg PO Q6H PRN pantoprazole 40 mg PO BID 6 weeks potassium chloride ER (Klor-Con) 10 mEq PO DAILY prochlorperazine maleate (Compazine) 10 mg PO Q4H PRN propranolol 40 mg PO BID rimegepant (Nurtec ODT) 75 mg PO .QOD spironolactone 50 mg PO QAM sumatriptan succinate TAKE ONE TABLET BY MOUTH AT ONSET of HEADACHE, if no RELIEF MAY REPEAT one tablet BY MOUTH AFTER AT least two hours. Max daily AMOUNT: FOUR TABLETS Allergies: cefaclor (From Ceclor) Allergy (Intermediate, Verified 10/22/24 08:17) rash cefadroxil (From Duricef) Allergy (Intermediate, Verified 10/22/24 08:17) rash penicillin G benethamine (benethamine penicillin) Allergy (Intermediate, Verified 10/22/24 08:17) rash Penicillins Allergy (Intermediate, Verified 10/22/24 08:17) rash Medical History: No history of collagen vascular disease. No previous radiation therapy. Port-A-Cath in place 06/23/24 Dr Barrett Malabsorption syndrome Iron (Fe) deficiency anemia Leukocytosis Rectal bleeding Anxiety Upper respiratory infection Migraine Cerumen impaction Acute bacterial sinusitis Dermatitis Medication management Essential hypertension, benign Cough Lower respiratory tract infection Bipolar disorder, unspecified Headache Hypothyroid Nasal bleeding Vitamin D deficiency Anemia Mixed hyperlipidemia Environmental and seasonal allergies Bipolar 2 disorder ADHD (attention deficit hyperactivity disorder) Asperger's disorder # Chronic Leukocytosis. x 2009. # Thrombocytosis 06/06/20 # Anemia 05/05/2024 # Iron deficiency anemia 05/05/2024. Previously oral iron tablets ineffective in 03/2023 # Rectal bleeding since 01/2024. # Hypothyroidism # Asperger's syndrome, obesity, migraine headaches, # Gender transition: Patient transitioning from male to female, and is on hormone therapy, Estradiol, progesterone, finasteride since 2021. Surgical History: History of cholecystectomy History of tonsillectomy and adenoidectomy Family History: Patient lives with his mother. Father is not involved in the care but has a history of head neck cancer in the past. Mother was adopted so history is not known Social History: Smoking and tobacco/nicotine status: never used tobacco/nicotine Second hand smoke exposure: No Alcohol intake: never Admits to marijuana QOD Current Complaints / Review of Systems: As above. Vital Signs: Performed on 11/05/2024 9:01 AM BMI - 44.05 kg/m2 (high), Height - 70 in, Weight - 307 lbs, Temperature - 98.2 f, Pulse - 85 /min, Respiration - 17 /min, O2 Sat - 97 %, Pain - 0, Fatigue - 0 and BP - 113/ 81 mm(hg). Physical Exam: Alert and agitated male, leaving exam to smoke a joint due to agitation. Head shows oral cavity without masses. Teeth in poor repair Chest-enlarged breasts Lungs-CTA Abdomen obese nontender with different size scabs noted Extremities poor hygiene but intact x 4 GI: Normal male external genitalia for age sphincter tone adequate. No rectal masses noted up to 5 cm from the anal verge. No blood per exam glove Performance Status: KPS 80 Pathology: Primary, c20 - malignant neoplasm of rectum, Diagnosed 06/04/2024 (active) . Lab: As above Imaging: See HPI Impression: C20 - malignant neoplasm of rectum, Diagnosed 06/04/2024 (active), PRIOR ACTIVE RECTAL BLEEDING, Posterior Rectal Mass 4.5 cm from AV, ADENOCARCINOMA rectal biopsy with contamination transfer colon BX,MRI PELVIS 07/21/2024 notes a mass 5.2 cm from the AV with mild penetration beyond the muscularis propria posteriorly, CEA 1.9, FOLFOX x 9 LD 11/19/2024, dose reduction of oxaliplatin by 10% after C1 due to hand/foot neuropathy, DEVELOPMENT INTERN starting 12/01/2024, mild use of marijuana QOD, ASPERGER???S SYN,GENGER TRANSITION SINCE 2021 (ESTRADIOL, PROGESTRONE, FINASTRIDE), VINITA 11/05/2024 ??? MASS. STAGE: [id number] ICD-10: C20 Plan: Options were discussed with the patient and mother. Questions answered Plan combined chemoradiation therapy to approximately 5400 cGy in conventional fractionation utilizing IMRT based treatment (DOSE BASED on patien not wishing post DEVELOPMENT INTERN surgery. CT SIM on 11/24/2024 with fusion of MRI of the pelvis on 07/21/2024. Commence DEVELOPMENT INTERN on 12/01/2024 Signed by: 11/05/2024 11:51:02 AM <<Signature on File>> Time spent with patient/mom: 75 minutes CPT Code: CPT Code:
[2024-11-05] MEDS: FLUOROURACIL IV (14:17)
[2024-11-05] MEDS: ELASTOMERIC PUMP PUMP IV (14:17)
[2024-11-05] MEDS: fluorouraciL 50 mg/ml MDV 100 mL 1000 MG IVP (14:17)
[2024-11-05] MEDS: SODIUM CHLORIDE IV (14:17)
== END 2024-11-22 23:59 | disposition home or self-care (01) ==
PROVIDERS: Internal Medicine; PCP Nurse Practitioner Family; Visit Provider Internal Medicine Medical Oncology
DX: Z51.11 Encounter for antineoplastic chemotherapy (principal); C20 Malignant neoplasm of rectum; Z79.631 Long term (current) use of antimetabolite agent; Z79.52 Long term (current) use of systemic steroids; J20.9 Acute bronchitis, unspecified; J42 Unspecified chronic bronchitis; R79.89 Other specified abnormal findings of blood chemistry; D50.9 Iron deficiency anemia, unspecified; D75.839 Thrombocytosis, unspecified; I10 Essential (primary) hypertension; F41.9 Anxiety disorder, unspecified; F84.5 Asperger's syndrome; E66.9 Obesity, unspecified; Z68.41 Body mass index [BMI] 40.0-44.9, adult; Z79.899 Other long term (current) drug therapy; Z95.828 Presence of other vascular implants and grafts; J32.9 Chronic sinusitis, unspecified; E03.9 Hypothyroidism, unspecified; R45.1 Restlessness and agitation; F64.0 Transsexualism; F12.90 Cannabis use, unspecified, uncomplicated; Z79.890 Hormone replacement therapy
CPT/HCPCS: 80053; 82378; 85025; 96367; 96411; 96413; 96415; 96416; 96417; 99205; 99215; J0640; J1100; J2469; J3490; J7060; J9190; J9263

== ENCOUNTER 2024-11-26 07:20 | Oncology outpatient (recurring) (ONCR) | payer MEDICARE, MEDICAID, SELFPAY ==
[2024-11-26 07:45] LABS: Basophils # 0.1 10^3/uL (0.0-0.1); Eosinophils # 0.7 10^3/uL (0.0-0.8); Eosinophils % 5.8 %; Hematocrit 44.1 % (37-53); Lymphocytes # 3.3 10^3/uL (0.8-4.8); Lymphocytes % 28.4 %; Mean Corpuscular Volume 90.6 fl (82-101); Mean Platelet Volume 9.1 fL (7.4-10.4); Monocytes # 1.3 10^3/uL (0.2-0.9); Monocytes % 10.9 %; Neutrophils # 5.94 10^3/uL (1.8-7.7); Neutrophils % 51.9 %; Nucleated Red Blood Cells % 0 %; Platelet Count 316 10^3/cmm (157-399); Red Blood Count 4.87 10^6/uL (3.85-5.65); Red Cell Distribution Width 16.3 % (12.1-15.1); White Blood Count 11.46 10^3/uL (3.29-11.43)
[2024-11-26 07:59] LABS: Alanine Aminotransferase 48 U/L (0-41); Albumin Level 3.8 g/dL (3.5-5.2); Alkaline Phosphatase 98 U/L (40-130); Anion Gap 17.1 (5-19); Aspartate Amino Transferase 63 U/L (0-40); Blood Urea Nitrogen 12 mg/dL (6-20); Calcium 9.5 mg/dL (8.5-10.5); Carbon Dioxide 25 mmol/L (22-29); Chloride 96 mmol/L (98-107); Globulin 4.3 g/dL (1.3-4.6); Glomerular Filtration Rate 128.3 mL/min (90-130); Glucose 226 mg/dL (65-115); Osmolality Calculated 285 mOsm/kg (285-295); Potassium 4.1 mmol/L (3.5-5.1); Sodium 134 mmol/L (136-145); Total Bilirubin 1.2 mg/dL (0.15-1.2); Total Protein 8.1 g/dL (6.6-8.7)
[2024-11-26] MEDS: dextrose 5% 250 ML 25 ML IV (10:08)
[2024-11-26] MEDS: dexamethasone 4 mg/mL INJ 5 mL 12 MG IVP (10:08)
[2024-11-26] MEDS: palonosetron 0.25 mg/5 mL SDV IVP (10:12)
[2024-11-26] MEDS: leucovorin 1,000 MG in dextrose 5% 250 ML 62.5 MG IV (10:46)
[2024-11-26] MEDS: oxaliplatin 100 MG, oxaliplatin 70 MG in dextrose 5% 250 ML 142 MG IV (10:46)
[2024-11-26] MEDS: fluorouraciL 50 mg/ml MDV 100 mL 1000 MG IVP (13:28)
[2024-11-26] MEDS: ELASTOMERIC PUMP PUMP IV (13:29)
[2024-11-26] MEDS: FLUOROURACIL IV (13:29)
[2024-11-26] MEDS: SODIUM CHLORIDE IV (13:29)
== END 2024-12-22 23:59 | disposition home or self-care (01) ==
PROVIDERS: PCP Nurse Practitioner Family; Visit Provider Internal Medicine
DX: Z51.11 Encounter for antineoplastic chemotherapy (principal); C20 Malignant neoplasm of rectum; Z79.631 Long term (current) use of antimetabolite agent; Z79.52 Long term (current) use of systemic steroids; J20.9 Acute bronchitis, unspecified; J42 Unspecified chronic bronchitis; R79.89 Other specified abnormal findings of blood chemistry; D50.9 Iron deficiency anemia, unspecified; D75.839 Thrombocytosis, unspecified; Z95.828 Presence of other vascular implants and grafts; Z79.899 Other long term (current) drug therapy; F64.0 Transsexualism; F84.5 Asperger's syndrome; E66.9 Obesity, unspecified; Z68.41 Body mass index [BMI] 40.0-44.9, adult
CPT/HCPCS: 80053; 85025; 96368; 96375; 96411; 96413; 96415; 96416; 99215; J0640; J1100; J2469; J7060; J9190; J9263

== ENCOUNTER → 2025-01-08 09:00 | Outpatient (BNVA) | payer MEDICARE, MEDICAID, SELFPAY | PROVIDERS: PCP Nurse Practitioner Family; Visit Provider Nurse Practitioner | DX: Z51.0 Encounter for antineoplastic radiation therapy (principal); C20 Malignant neoplasm of rectum; R19.7 Diarrhea, unspecified | CPT/HCPCS: 77014; 77300; 77301; 77336; 77338; 77386; 77427; 99024; 99215 ==

== ENCOUNTER 2025-01-08 13:51 | Emergency (ER) | payer MEDICARE, MEDICAID, SELFPAY ==
[2025-01-08 14:03] VITALS: BP 117/73; PULSE 89; RESP 16; TEMP 37; O2SAT 97; BMI 44.3
--- NOTE | 2025-01-08 14:14 | XR_ITS ---
WS: [id number] XR chest 1V portable [id number] REASON FOR EXAM: Weakness FINDINGS: The chest is unchanged compared to 08/15/2024. Chemotherapy infusion port over the left chest with trans left subclavian vein infusion catheter with the tip in the proximal SVC. The heart and the mediastinum are within normal limits. Calcified granulomatous disease bilaterally. No acute pulmonary parenchymal or pleural abnormality. XR/XR chest 1V portable [id number] IMPRESSION: Stable chest without acute abnormality.
--- NOTE | 2025-01-08 14:14 | ECG_ITS ---
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 Measurements Intervals [place] Rate: 81 P: 31 PA: 145 QRS: 68 QRSD: 88 T: 67 QT: 406 QTc: 471 Interpretive Statements SINUS RHYTHM Compared to ECG 08/15/2024 13:46:15 Short PA interval no longer present T-wave abnormality no longer present Electronically Signed On 01-10-2025 14:12:17 CDT by Ghulam Murillo M.D. [email or web address]
--- NOTE | 2025-01-08 14:33 | ED_ITS ---
HPI - Dizziness 2 General: Chief Complaint: Dizziness Stated Complaint: dizziness Time Seen by Provider: 01/08/25 14:01 History of Present Illness: HPI Narrative: 34-year-old man with a history of iron d eficiency anemia anxiety, migraines, bipolar disorder, hyperlipidemia, Asperger syndrome, and rectal cancer receiving chemotherapy and had his first radiation treatment today who was in the hospital and he became very lightheaded and slumped to the floor. A rapid response was called and the patient was brought immediately to the emergency room. He says he felt lightheaded and generally weak. Nothing focal. No fever. No cough. No abdominal pain. No vomiting. Related Data Home Medications ?Medication ?Instructions ?Recorded ?Confirmed hydroxyzine HCl 10 mg tablet 10 mg PO BID PRN Itching 06/02/24 01/08/25 cholecalciferol (vitamin D3) 50 50 mcg PO QPM 08/15/24 01/08/25 mcg (2,000 unit) capsule losartan 25 mg tablet 25 mg PO DAILY 08/15/2412/23 propranolol 40 mg tablet 40 mg PO BID 08/15/24 rimegepant 75 mg disintegrating 75 mg PO .QOD 08/15/24 01/08/25 tablet (Nurtec ODT) Previous Rx's ?Medication ?Instructions ?Recorded estradiol 2 mg tablet 2 mg PO BID 30 days #60 tabs 12/14/21 levothyroxine 100 mcg capsule 100 mcg PO DAILY #100 ca ps 05/08/24 pantoprazole 40 mg tablet,delayed 40 mg PO BID 6 weeks #84 tabs 06/04/24 release ondansetron HCl 4 mg tablet 4 mg PO Q6H PRN nausea and 07/17/24 vomiting #30 tabs prochlorperazine maleate 10 mg 10 mg PO Q4H PRN mild n ausea #30 07/17/24 tablet (Compazine) tabs ipratropium 20 mcg-albuterol 100 1 puff inhalation QID PRN sob #4 07/30/24 mcg/actuation mist for inhalation grams (Combivent Respimat) sumatriptan succinate 50 mg tablet See Rx Instructions .Route 08/11/24 .COMPLEX #10 tabs Nebulizer #1 ea 08/20/24 albuterol sulfate 2.5 mg/3 mL 2.5 mg (3 mL) inhalation Q6H PRN 08/20/24 (0.083 %) solution for nebulization Shortness Of Breat h #180 mL hydrocortisone 1 % topical cream 1 applic topical BID PRN rash 08/20/24 #28.4 grams nystatin-triamcinolone 100,000 1 applic topical TID #6 0 grams 08/20/24 unit/g-0.1 % topical cream doxycycline hyclate 100 mg capsule 100 mg PO BID 10 da ys #20 caps 09/24/24 potassium chloride 10 mEq 10 meq PO DAILY #30 tabs 08/19 tablet,extended release (Klor-Con) lorazepam 1 mg tablet 1 mg PO Q6H PRN aniety #60 t abs 10/02/24 alprazolam 1 mg tablet (Xanax) 1 mg PO TID PRN anxiety #90 tabs 10/28/24 lidocaine-prilocaine 2.5 %-2.5 % 1 applic topical .COM PLEX #30 grams 11/05/24 topical cream spironolactone 50 mg tablet 50 mg PO BID #60 tabs 11/24 12/17 finasteride 1 mg tablet 1 mg PO DAILY #30 tabs 01/08 ibuprofen 800 mg tablet 800 mg PO TID PRN pain #90 t abs 01/08/25 silver sulfadiazine 1 % topical 1 applic topical BID 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 Skin symptoms: Negative except as documented in HPI. Eye symptoms: Negative except as documented in HPI. ENMT symptoms: Negative except as documented in HPI. Respiratory symptoms: Negative except as documented in HPI. Cardiovascular symptoms: Negative except as documented in HPI. Gastrointestinal symptoms: Negative except as documented in HPI. Genitourinary symptoms: Negative except as documented in HPI. Musculoskeletal symptoms: Negative except as documented in HPI. Neurologic symptoms: Negative except as documented in HPI. Psychiatric symptoms: Negative except as documented in HPI. Endocrine symptoms: Negative except as documented in HPI. PFSH ED 2 PFSH: Medical History (Updated 01/08/25 @ 17:16 by Nancy Em MD) Port-A-Cath in place 06/23/24 Dr Barrett Malabsorption syndrome Iron (Fe) deficiency anemia Leukocytosis Rectal bleeding Anxiety Upper respiratory infection Migraine Cerumen impaction Acute bacterial sinusitis Dermatitis Medication management Essential hypertension, benign Cough Lower respiratory tract infection Bipolar disorder, unspecified Headache Hypothyroid Nasal bleeding Vitamin D deficiency Anemia Mixed hyperlipidemia Environmental and seasonal allergies Bipolar 2 disorder ADHD (attention deficit hyperactivity disorder) Asperger's disorder Surgical History History of cholecystectomy History of tonsillectomy and adenoidectomy Social History Smoking and tobacco/nicotine status: never used tobacco/nicotine Second hand smoke exposure: No Alcohol intake: never Physical Exam 2 Narrative: EXAM NARRATIVE: General: Alert, no acute distress. Skin: Warm, dry. Head: Normocephalic, atraumatic. Neck: Supple, trachea midline. Eye: Extraocular movements are intact. Ears, nose, mouth and throat: mucosa moist. Cardiovascular: Regular, Normal peripheral perfusion. Respiratory: Lungs are clear to auscultation, respirations are non-labored, breath sounds are equal, Symmetrical chest wall expansion. Gastrointestinal: Soft, Nontender, Non distended Musculoskeletal: Normal ROM, no deformity. Neurological: Alert and oriented, No focal neurological deficit observed. Psychiatric: Cooperative, appropriate mood & affect. Course 2 Vital Signs: Vital signs: Vital Signs Temperature 98.6 F 01/08/25 14:03 Pulse Rate 89 01/08/25 14:03 Respiratory Rate 16 01/08/25 14:03 Blood Pressure 117/73 01/08/25 14:03 Pulse Oximetry 97 01/08/25 14:03 Oxygen Delivery Me thod Room Air 01/08/25 14:03 MDM - Dizziness Medical Decision Making Medical decision making: Differential diagnosis including but not limited to and based on the above HPI, review of systems and physical exam: for patient with complaint of dizziness: stroke, hypotension, hypertension, infection, vertigo, orthostasis Orders placed to evaluate differential diagnosis based on the above differential, HPI and physical exam EKG: Time 1503. Rate 81. Normal sinus rhythm, No ST-T changes, no ectopy, normal PA & QRS intervals, This was reviewed and interpreted by myself the ER physician at 1505 Chest x-ray: No acute process. No infiltrate. No pneumothorax. This was reviewed and interpreted by myself the emergency room physician. I also reviewed the radiology report. Lab Review: Laboratory results were reviewed and interpreted by myself the emergency room physician. Stable mild leukocytosis. No anemia. No renal failure. Urinalysis is negative for infection. I reviewed the patient's medical record. 34-year-old man with a history of iron deficiency anemia anxiety, migraines, bipolar disorder, hyperlipidemia, Asperger syndrome, and rectal cancer receiving chemotherapy and had his first radiation treatment toda Reexamination: Patient remained stable. No increased work of breathing. No altered mental status. No focal motor deficits. Assessment and plan: Dehydration Near syncope ?Normal saline bolus in the emergency room - Discharged home - Discussed plan with patient. Answered any questions. - Evaluation and treatment of this problem were appropriate in the emergency setting. Lab Data 01/08/25 15:34 01/08/25 15:34 Radiology Impressions Chest X-Ray 01/08/25 14:14 IMPRESSION: Stable chest without acute abnormality. Laboratory Results WBC 12.95 10^3/uL (3.29-11.43) H 01/08/25 15:34 RBC 4.85 10^6/uL (3.85-5.65) 01/08/25 15:34 Hgb 13.70 g/dL (11.27-16.99) 01/08/25 15:34 Hct 42.4 % (37-53) 01/08/25 15:34 MCV 87.4 fl (82-101) 01/08/25 15:34 MCH 28.2 pg (27-33) 01/08/25 15:34 MCHC 32.3 g/dL (30-55) 01/08/25 15:34 RDW 13.2 % (12.1-15.1) 01/08/25 15:34 Plt Count 308 10^3/cmm (157-399) 01/08/25 15:34 MPV 8.8 fL (7.4-10.4) 01/08/25 15:34 Neut % (Auto) 62.7 % 01/08/25 15:34 Lymph % (Auto) 21.7 % 01/08/25 15:34 [place] % (Auto) 7.2 % 01/08/25 15:34 Eos % (Auto) 7.0 % 01/08/25 15:34 Baso % (Auto) 0.9 % 01/08/25 15:34 Neut # (Auto) 8.11 10^3/uL (1.8-7.7) H 01/08/25 15:34 Lymph # (Auto) 2.8 10^3/uL (0.8-4.8) 01/08/25 15:34 [place] # (Auto) 0.9 10^3/uL (0.2-0.9) 01/08/25 15:34 Eos # (Auto) 0.9 10^3/uL (0.0-0.8) H 01/08/25 15:34 Baso # (Auto) 0.1 10^3/uL (0.0-0.1) 01/08/25 15:34 Nucleated RBC % (auto) 0 % 01/08/25 15:34 Nucleated RBCs # 0.0 /100WBC 01/08/25 15:34 Sodium 137 mmol/L (136-145) 01/08/25 15:34 Potassium 4.2 mmol/L (3.5-5.1) 01/08/25 15:34 Chloride 99 mmol/L (98-107) 01/08/25 15:34 Carbon Dioxide 25 mmol/L (22-29) 01/08/25 15:34 Anion Gap 17.2 (5-19) 01/08/25 15:34 BUN 15 mg/dL (6-20) 01/08/25 15:34 Creatinine 0.7 mg/dL (0.7-1.2) 01/08/25 15:34 GFR Calculation 128.3 mL/min (90-130) 01/08/25 15:34 Glucose 101 mg/dL (65-115) 01/08/25 15:34 Calculated Osmolality 285 mOsm/kg (285-295) 01/08/25 15:34 Lactic Acid Cancelled 01/08/25 15:34 Calcium 9.2 mg/dL (8.5-10.5) 01/08/25 15:34 Total Bilirubin 1.1 mg/dL (0.15-1.2) 01/08/25 15:34 AST 65 U/L (0-40) H 01/08/25 15:34 ALT 53 U/L (0-41) H 01/08/25 15:34 Alkaline Phosphatase 83 U/L (40-130) 01/08/25 15:34 Total Protein 8.1 g/dL (6.6-8.7) 01/08/25 15:34 Albumin 4.1 g/dL (3.5-5.2) 01/08/25 15:34 Globulin 4.0 g/dL (1.3-4.6) 01/08/25 15:34 Urine Color Yellow (Yellow) 01/08/25 16:51 Urine Appearance Clear (CLEAR) 01/08/25 16:51 Urine pH 5.0 (5-7) 01/08/25 16:51 Ur Specific [place] 1.025 (1.005-1.030) 01/08/25 16:51 Urine Protein Trace (Negative) A 01/08/25 16:51 Urine Glucose (UA) Negative (Normal) 01/08/25 16:51 Urine Ketones Trace (Negative) 01/08/25 16:51 Urine Blood Negative (Negative) 01/08/25 16:51 Urine Nitrate Negative (Negative) 01/08/25 16:51 Urine Bilirubin Negative (Negative) 01/08/25 16:51 Urine Urobilinogen 1.0 mg/dL (Negative) 01/08/25 16:51 Ur Leukocyte Esterase Negative (Negative) 01/08/25 16:51 Urine RBC 0-2 /hpf (0-2) 01/08/25 16:51 Urine WBC 0-5 /hpf (0-5) 01/08/25 16:51 Ur Squamous Epith Cells 0-5 /hpf (0-5) 01/08/25 16:51 Amorphous Sediment Not Reportable 01/08/25 16:51 Urine Bacteria None seen /hpf (NONE) 01/08/25 16:51 Hyaline Casts 1.21 /lpf 01/08/25 16:51 All radiology interpretation(s) finalized by discharge Discharge Plan Discharge Patient Disposition: Home Clinical Impression: Near syncope, Dehydration Condition: Stable Prescriptions: No Action albuterol sulfate 2.5 mg /3 mL (0.083 %) solution for nebulization 2.5 mg inhalation Q6H PRN (Reason: Shortness Of Breath) Qty: 180 6RF nystatin-triamcinolone 100,000-0.1 unit/g-% cream 1 applic topical TID Qty: 60 6RF hydrocortisone 1 % cream 1 applic topical BID PRN (Reason: rash) Qty: 28.4 6RF (DME) Nebulizer See Rx Instructions .Route .MEDSUPPLY Qty: 1 0RF Rx Instructions: As directed doxycycline hyclate 100 mg capsule 100 mg PO BID 10 Days Qty: 20 0RF potassium chloride [Klor-Con 10] 10 mEq tablet extended release 10 meq PO DAILY Qty: 30 0RF silver sulfadiazine [Silvadene] 1 % cream 1 applic topical BID PRN (Reason: wound healing) Qty: 400 1RF Rx Instructions: apply a 1.5 mm thickness twice daily finasteride 1 mg tablet 1 mg PO DAILY Qty: 30 6RF ibuprofen 800 mg tablet 800 mg PO TID PRN (Reason: pain) Qty: 90 6RF estradiol 2 mg tablet 2 mg PO BID 30 Days Qty: 60 0RF levothyroxine 100 mcg capsule 100 mcg PO DAILY Qty: 100 0RF Combivent Respimat 20-100 mcg/actuation mist 1 puff inhalation QID PRN (Reason: sob) Qty: 4 6RF ondansetron HCl 4 mg tablet 4 mg PO Q6H PRN (Reason: nausea and vomiting) Qty: 30 3RF prochlorperazine maleate [Compazine] 10 mg tablet 10 mg PO Q4H PRN (Reason: mild nausea) Qty: 30 3RF sumatriptan succinate 50 mg tablet See Rx Instructions .ROUTE .COMPLEX Qty: 10 2RF Dose Instruction: TAKE ONE TABLET BY MOUTH AT ONSET of HEADACHE, if no RELIEF MAY REPEAT one tablet BY MOUTH AFTER AT least two hours. Max daily AMOUNT: FOUR TABLETS Rx Instructions: TAKE ONE TABLET BY MOUTH AT ONSET of HEADACHE, if no RELIEF MAY REPEAT one tablet BY MOUTH AFTER AT least two hours. Max daily AMOUNT: FOUR TABLETS lorazepam 1 mg tablet 1 mg PO Q6H PRN (Reason: aniety) Qty: 60 4RF alprazolam [Xanax] 1 mg tablet 1 mg PO TID PRN (Reason: anxiety) Qty: 90 3RF Rx Instructions: 1/2 to 1 tablet every 8 hours prn anxiety lidocaine-prilocaine 2.5-2.5 % cream 1 applic topical .COMPLEX Qty: 30 2RF Rx Instructions: Apply quarter-size amount to port site 30 minutes prior to access; cover with cling wrap spironolactone 50 mg tablet 50 mg PO BID Qty: 60 6RF hydroxyzine HCl 10 mg tablet 10 mg PO BID PRN (Reason: Itching) pantoprazole 40 mg tablet,delayed release (DR/EC) 40 mg PO BID 42 Days Qty: 84 1RF Nurtec ODT 75 mg tablet,disintegrating 75 mg PO .QOD propranolol 40 mg tablet 40 mg PO BID losartan 25 mg tablet 25 mg PO DAILY cholecalciferol (vitamin D3) 50 mcg (2,000 unit) capsule 50 mcg PO QPM Discharge Orders: Discharge ED (Routine); Ordered 01/08/25 Ordered By: Nancy Em Referrals: DAMIAN Viveros, COSTING ANALYST [Primary Care Provider, Family Practice] Discharge Diet: Usual diet Discharge Activity: Increase activity as tolerated Patient Instructions: Opioid Safety, Pain Management, Patient Portal & Alize Instructions Activity Restrictions/Additional Instructions: Thank you for choosing [facility] for your healthcare needs today. You have been screened and evaluated and felt safe for discharge. Health conditions do change or evolve sometimes and as such it is important that you follow up with your Primary Doctor to be re checked, 3-5 days is a general good time frame for follow up. You are always welcome to return to the ED for re assessment if your symptoms are worsening or you have new concerns Print Language: Ukrainian Coding Level of Care Code ED Scada Technician for Kelsey Espinoza
[2025-01-08 16:01] LABS: Hematocrit 42.4 % (37-53); Hemoglobin 13.70 g/dL (11.27-16.99); Mean Corpuscular HGB Conc 32.3 g/dL (30-55); Mean Corpuscular Hemoglobin 28.2 pg (27-33); Mean Corpuscular Volume 87.4 fl (82-101); Nucleated Red Blood Cells % 0 %; Platelet Count 308 10^3/cmm (157-399); Red Blood Count 4.85 10^6/uL (3.85-5.65); White Blood Count 12.95 10^3/uL (3.29-11.43)
[2025-01-08 16:28] LABS: Alanine Aminotransferase 53 U/L (0-41); Albumin Level 4.1 g/dL (3.5-5.2); Alkaline Phosphatase 83 U/L (40-130); Anion Gap 17.2 (5-19); Aspartate Amino Transferase 65 U/L (0-40); Blood Urea Nitrogen 15 mg/dL (6-20); Calcium 9.2 mg/dL (8.5-10.5); Carbon Dioxide 25 mmol/L (22-29); Chloride 99 mmol/L (98-107); Creatinine Clr Calc Pharmacy 208.0500; Globulin 4.0 g/dL (1.3-4.6); Glucose 101 mg/dL (65-115); Osmolality Calculated 285 mOsm/kg (285-295); Potassium 4.2 mmol/L (3.5-5.1); Sodium 137 mmol/L (136-145); Total Protein 8.1 g/dL (6.6-8.7)
[2025-01-08 17:02] LABS: Glucose Urine UA Negative (Normal); Nitrate Urine Negative (Negative); Specific Gravity, Urine 1.025 (1.005-1.030)
[2025-01-08 18:14] VITALS: PULSE 81; O2SAT 98
== END 2025-01-08 18:16 | disposition home or self-care (01) ==
PROVIDERS: Emergency Provider Emergency Medicine; PCP Nurse Practitioner Family
DX: R55 Syncope and collapse (principal); E86.0 Dehydration; E78.5 Hyperlipidemia, unspecified; C20 Malignant neoplasm of rectum; E03.9 Hypothyroidism, unspecified; I10 Essential (primary) hypertension; Z79.899 Other long term (current) drug therapy; Z88.0 Allergy status to penicillin; Z88.1 Allergy status to other antibiotic agents; Z88.8 Allergy status to other drugs, medicaments and biological substances; D50.9 Iron deficiency anemia, unspecified; G43.909 Migraine, unspecified, not intractable, without status migrainosus; F84.5 Asperger's syndrome; F41.9 Anxiety disorder, unspecified; F31.9 Bipolar disorder, unspecified
CPT/HCPCS: 36415; 71045; 80053; 81001; 85025; 87040; 87150; 87205; 93005; 99285; J7030

== ENCOUNTER 2025-01-22 09:30 | Oncology outpatient (recurring) (ONCR) | payer MEDICARE, MEDICAID, SELFPAY ==
[2025-01-01 08:01] LABS: Hematocrit 41.3 % (37-53); Hemoglobin 13.50 g/dL (11.27-16.99); Mean Corpuscular HGB Conc 32.7 g/dL (30-55); Mean Corpuscular Hemoglobin 28.6 pg (27-33); Mean Corpuscular Volume 87.5 fl (82-101); Nucleated Red Blood Cells % 0 %; Platelet Count 301 10^3/cmm (157-399); Red Blood Count 4.72 10^6/uL (3.85-5.65); White Blood Count 13.37 10^3/uL (3.29-11.43)
[2025-01-01 08:20] LABS: Alanine Aminotransferase 38 U/L (0-41); Albumin Level 3.8 g/dL (3.5-5.2); Alkaline Phosphatase 72 U/L (40-130); Anion Gap 15.9 (5-19); Aspartate Amino Transferase 37 U/L (0-40); Blood Urea Nitrogen 12 mg/dL (6-20); Calcium 9.3 mg/dL (8.5-10.5); Carbon Dioxide 25 mmol/L (22-29); Chloride 99 mmol/L (98-107); Globulin 3.7 g/dL (1.3-4.6); Glucose 191 mg/dL (65-115); Osmolality Calculated 287 mOsm/kg (285-295); Potassium 3.9 mmol/L (3.5-5.1); Sodium 136 mmol/L (136-145); Total Protein 7.5 g/dL (6.6-8.7)
[2025-01-08 08:07] LABS: Hematocrit 42.2 % (37-53); Hemoglobin 13.80 g/dL (11.27-16.99); Mean Corpuscular HGB Conc 32.7 g/dL (30-55); Mean Corpuscular Hemoglobin 28.6 pg (27-33); Mean Corpuscular Volume 87.6 fl (82-101); Nucleated Red Blood Cells % 0 %; Platelet Count 357 10^3/cmm (157-399); Red Blood Count 4.82 10^6/uL (3.85-5.65); White Blood Count 13.79 10^3/uL (3.29-11.43)
[2025-01-08 08:18] LABS: Alanine Aminotransferase 42 U/L (0-41); Albumin Level 4.2 g/dL (3.5-5.2); Alkaline Phosphatase 82 U/L (40-130); Anion Gap 16.9 (5-19); Aspartate Amino Transferase 41 U/L (0-40); Blood Urea Nitrogen 13 mg/dL (6-20); Calcium 9.1 mg/dL (8.5-10.5); Carbon Dioxide 24 mmol/L (22-29); Chloride 98 mmol/L (98-107); Creatinine Clr Calc Pharmacy 210.3183; Globulin 3.9 g/dL (1.3-4.6); Glucose 154 mg/dL (65-115); Magnesium 2.0 mg/dL (1.7-2.3); Osmolality Calculated 283 mOsm/kg (285-295); Potassium 3.9 mmol/L (3.5-5.1); Sodium 135 mmol/L (136-145); Total Protein 8.1 g/dL (6.6-8.7)
[2025-01-08] MEDS: SODIUM CHLORIDE 0.9% IV (10:59)
[2025-01-08] MEDS: FLUOROURACIL IV (10:59)
--- NOTE | 2025-01-13 11:59 | ONCRAD TMN_ITS ---
Radiation Oncology Weekly Treatment Management Patient: Marcio Bhakta MR#: [id number] : 1990 Attending Physician: Dr. Jesse Hayden Date of Service: 01/13/2025 Referring Physician(s) : Diagnosis: C20 - Malignant neoplasm of rectum, Diagnosed 06/04/2024 (Active) Radiotherapy to date: Course: Rectum 2024, Treatment Site: rectum/pelvis, Ref. ID: [id number], Energy: 15X, Dose/Fx (cGy): 200, #Fx: , Dose Correction (cGy): 0, Total Dose Delivered (cGy): 800, Start Date: 01/08/2025, Elapsed Days: 5 Reason for visit: The patient is being seen today as part of their regularly scheduled weekly on treatment visits to assess for acute toxicities from radiotherapy. Review of Systems: MRI on 12/29/2024 showed chemotherapy inducing a reduction in tumor mass to 2.9 cm. Patient on infusional 5-FU and XRT Vital Signs: Performed on 01/13/2025 10:45 AM BMI - 44.05 kg/m2 (high), Height - 70 in, Weight - 307 lbs, Temperature - 96.7 f, Respiration - 18 /min, O2 Sat - 98 %, Pain - 0, Fatigue - 0 and BP - 130/ 92 mm(hg)(/high). Physical Exam: Alert and agitated 34-year-old male with Asperger's syndrome and gender transformation. Patient to get hydration today Imaging: Radiation therapy imaging related to accurate target localization (i.e. KV, MV and CBCT) was reviewed. Appropriate changes, if any, were made to ensure treatment accuracy. Plan: Continue 5-FU and XRT. Hydration today Signed by: Jesse Hayden 01/13/2025 11:58:07 AM
[2025-01-13] MEDS: ondansetron 2 mg/ML SDV 2 mL 8 MG IVP (12:56)
[2025-01-13 14:40] VITALS: BP 122/85; PULSE 88; RESP 17; TEMP 36.5; O2SAT 96
[2025-01-14 10:28] LABS: Hematocrit 41.9 % (37-53); Hemoglobin 13.50 g/dL (11.27-16.99); Mean Corpuscular HGB Conc 32.2 g/dL (30-55); Mean Corpuscular Hemoglobin 28.4 pg (27-33); Mean Corpuscular Volume 88.2 fl (82-101); Nucleated Red Blood Cells % 0 %; Platelet Count 389 10^3/cmm (157-399); Red Blood Count 4.75 10^6/uL (3.85-5.65); White Blood Count 14.75 10^3/uL (3.29-11.43)
[2025-01-14] MEDS: ondansetron 2 mg/ML SDV 2 mL 8 MG IVP (10:55)
[2025-01-14 11:23] LABS: Alanine Aminotransferase 53 U/L (0-41); Albumin Level 4.3 g/dL (3.5-5.2); Alkaline Phosphatase 75 U/L (40-130); Anion Gap 18.3 (5-19); Aspartate Amino Transferase 32 U/L (0-40); Blood Urea Nitrogen 15 mg/dL (6-20); Calcium 9.8 mg/dL (8.5-10.5); Carbon Dioxide 24 mmol/L (22-29); Chloride 100 mmol/L (98-107); Creatinine Clr Calc Pharmacy 242.7250; Ferritin 255 ng/mL (30-400); Globulin 3.7 g/dL (1.3-4.6); Glucose 306 mg/dL (65-115); Iron 165 ug/dL (59-158); Magnesium 2.0 mg/dL (1.7-2.3); Osmolality Calculated 298 mOsm/kg (285-295); Potassium 4.3 mmol/L (3.5-5.1); Sodium 138 mmol/L (136-145); Thyroid Stimulating Hormone 3.43 uIU/mL (0.27-4.20); Total Iron Binding Capacity 283 mcg/dl; Total Protein 8.0 g/dL (6.6-8.7); Unsaturated Iron Binding 118 ug/dL (112-347); Vitamin B12 353 pg/mL (232-1245)
[2025-01-15] MEDS: LORazepam 1 MG/0.5 ML injection IVP (10:20)
[2025-01-15] MEDS: SODIUM CHLORIDE 0.9% IV (11:28)
[2025-01-15] MEDS: FLUOROURACIL IV (11:28)
--- NOTE | 2025-01-20 11:32 | ONCRAD TMN_ITS ---
Radiation Oncology Weekly Treatment Management Patient: Marcio Bhakta MR#: [id number] : 1990 Attending Physician: Dr. Jesse Hayden Date of Service: 01/20/2025 Referring Physician(s) : Diagnosis: C20 - Malignant neoplasm of rectum, Diagnosed 06/04/2024 (Active) Radiotherapy to date: Course: Rectum 2024, Treatment Site: rectum/pelvis, Ref. ID: PTV, Energy: 15X, Dose/Fx (cGy): 200, #Fx: , Dose Correction (cGy): 0, Total Dose Delivered (cGy): 1,800, Start Date: 01/08/2025, Elapsed Days: 12 Reason for visit: The patient is being seen today as part of their regularly scheduled weekly on treatment visits to assess for acute toxicities from radiotherapy. Review of Systems: Patient complaining of a increased diarrhea. His mom is given him Imodium. Labs adequate for treatment. Vital Signs: Performed on 01/20/2025 11:14 AM BMI - 43.763 kg/m2 (high), Height - 70 in, Weight - 305 lbs, Temperature - 96.2 f, Pulse - 98 /min, Respiration - 18 /min, O2 Sat - 98 %, Pain - 0, Fatigue - 0 and BP - 144/ 93 mm(hg)(high). Physical Exam: Skin intact. AAOx3 Imaging: Radiation therapy imaging related to accurate target localization (i.e. KV, MV and CBCT) was reviewed. Appropriate changes, if any, were made to ensure treatment accuracy. Plan: Continue XRT Continue the daily chemo Continue Imodium as needed. May need to transition to the Lomotil if not resolved. Signed by: Jesse Hayden 01/20/2025 11:31:56 AM
[2025-01-21 10:42] LABS: Hematocrit 42.8 % (37-53); Hemoglobin 13.90 g/dL (11.27-16.99); Mean Corpuscular HGB Conc 32.5 g/dL (30-55); Mean Corpuscular Hemoglobin 27.9 pg (27-33); Mean Corpuscular Volume 85.9 fl (82-101); Nucleated Red Blood Cells % 0 %; Platelet Count 256 10^3/cmm (157-399); Red Blood Count 4.98 10^6/uL (3.85-5.65); White Blood Count 9.96 10^3/uL (3.29-11.43)
[2025-01-21 11:08] LABS: Carcinoembryonic Antigen 1.6 ng/mL (0.0-4.7)
[2025-01-21 11:20] LABS: Alanine Aminotransferase 51 U/L (0-41); Albumin Level 4.1 g/dL (3.5-5.2); Alkaline Phosphatase 75 U/L (40-130); Anion Gap 18.0 (5-19); Aspartate Amino Transferase 52 U/L (0-40); Blood Urea Nitrogen 15 mg/dL (6-20); Calcium 9.2 mg/dL (8.5-10.5); Carbon Dioxide 25 mmol/L (22-29); Chloride 100 mmol/L (98-107); Creatinine Clr Calc Pharmacy 184.0285; Globulin 3.6 g/dL (1.3-4.6); Glucose 206 mg/dL (65-115); Osmolality Calculated 295 mOsm/kg (285-295); Potassium 4.0 mmol/L (3.5-5.1); Sodium 139 mmol/L (136-145); Total Protein 7.7 g/dL (6.6-8.7)
[2025-01-22] MEDS: dexamethasone 4 mg/mL INJ 5 mL 12 MG IV (10:46)
[2025-01-22] MEDS: ondansetron 2 mg/ML SDV 2 mL 8 MG IVP (10:54)
[2025-01-22] MEDS: FLUOROURACIL IV (12:47)
[2025-01-22] MEDS: SODIUM CHLORIDE 0.9% IV (12:47)
== END 2025-01-22 23:59 | disposition home or self-care (01) ==
PROVIDERS: Internal Medicine; Nurse Practitioner; PCP Nurse Practitioner Family; Visit Provider Radiology Radiation Oncology
DX: Z53.9 Procedure and treatment not carried out, unspecified reason; Z51.11 Encounter for antineoplastic chemotherapy; C20 Malignant neoplasm of rectum; Z79.631 Long term (current) use of antimetabolite agent; Z79.52 Long term (current) use of systemic steroids; J20.9 Acute bronchitis, unspecified; J42 Unspecified chronic bronchitis; R03.0 Elevated blood-pressure reading, without diagnosis of hypertension
CPT/HCPCS: 36591; 77334; 77386; 77470; 80053; 82378; 82607; 82728; 83540; 83550; 83615; 83735; 84443; 85025; 96360; 96361; 96365; 96367; 96374; 96375; 96416; 96523; 99024; 99213; 99215; J0133; J1100; J2060; J2405; J3490; J7030; J7050; J9190; J9999

== ENCOUNTER 2025-02-10 12:35 | Oncology outpatient (recurring) (ONCR) | payer MEDICARE, MEDICAID, SELFPAY ==
--- NOTE | 2025-01-27 11:05 | ONCRAD TMN_ITS ---
Radiation Oncology Weekly Treatment Management Patient: Marcio Bhakta MR#: [id number] : 1990 Attending Physician: Dr. Mo Cabezas Date of Service: 01/27/2025 Referring Physician(s) : Diagnosis: C20 - Malignant neoplasm of rectum, Diagnosed 06/04/2024 (Active) Radiotherapy to date: Course: Rectum 2024, Treatment Site: rectum/pelvis, Ref. ID: PTV, Energy: 15X, Dose/Fx (cGy): 200, #Fx: , Dose Correction (cGy): 0, Total Dose Delivered (cGy): 2,800, Start Date: 01/08/2025, Elapsed Days: 19 Reason for visit: The patient is being seen today as part of their regularly scheduled weekly on treatment visits to assess for acute toxicities from radiotherapy. Review of Systems: Went to ER Sunday night with blood in urine and UTI found. Cipro x 1 in ER now will resume today. Urine cleared but still stings a bit. Using cranberry juice. Also has diarrhea not responsive to 2 Imodium. Off chemo pump today with plans for IV fluids today. Resume pump . Vital Signs: Performed on 01/27/2025 10:12 AM BMI - 43.735 kg/m2 (high), Height - 70 in, Weight - 304.8 lbs, Temperature - 96.2 f, Pulse - 90 /min, Respiration - 18 /min, O2 Sat - 98 %, Pain - 0, Fatigue - 0 and BP - 140/ 99 mm(hg)(/high). Physical Exam: omitted Imaging: Radiation therapy imaging related to accurate target localization (i.e. KV, MV and CBCT) was reviewed. Appropriate changes, if any, were made to ensure treatment accuracy. Plan: Fair to good tolerance of treatment. Resume Cipro. Add azo if needed. Ok to take up to 8 Imodium a day and reduce fiber in diet. Continue treatment as planned. Signed by: Dr. Mo Cabezas 01/27/2025 11:03:43 AM
[2025-01-28 11:08] LABS: Hematocrit 40.8 % (37-53); Hemoglobin 13.40 g/dL (11.27-16.99); Mean Corpuscular HGB Conc 32.8 g/dL (30-55); Mean Corpuscular Hemoglobin 27.8 pg (27-33); Mean Corpuscular Volume 84.6 fl (82-101); Nucleated Red Blood Cells % 0 %; Platelet Count 198 10^3/cmm (157-399); Red Blood Count 4.82 10^6/uL (3.85-5.65); White Blood Count 10.14 10^3/uL (3.29-11.43)
[2025-01-28 11:33] LABS: Carcinoembryonic Antigen 1.6 ng/mL (0.0-4.7)
[2025-01-28 11:45] LABS: Alanine Aminotransferase 67 U/L (0-41); Albumin Level 4.1 g/dL (3.5-5.2); Alkaline Phosphatase 68 U/L (40-130); Anion Gap 15.8 (5-19); Aspartate Amino Transferase 57 U/L (0-40); Blood Urea Nitrogen 12 mg/dL (6-20); Calcium 9.5 mg/dL (8.5-10.5); Carbon Dioxide 25 mmol/L (22-29); Chloride 100 mmol/L (98-107); Globulin 3.5 g/dL (1.3-4.6); Glucose 179 mg/dL (65-115); Magnesium 1.9 mg/dL (1.7-2.3); Osmolality Calculated 288 mOsm/kg (285-295); Potassium 3.8 mmol/L (3.5-5.1); Sodium 137 mmol/L (136-145); Total Protein 7.6 g/dL (6.6-8.7)
[2025-01-28 11:58] LABS: Ferritin 378 ng/mL (30-400)
[2025-01-29] MEDS: dexamethasone 4 mg/mL INJ 5 mL 12 MG IV (10:11)
[2025-01-29] MEDS: ondansetron 2 mg/ML SDV 2 mL 8 MG IVP (10:21)
--- NOTE | 2025-02-02 09:56 | US_ITS ---
WS: [id number] RIGHT UPPER QUADRANT ULTRASOUND HISTORY: ELEVATED LFTS COMPARISON: 08/02/2010 Liver: 17.0 cm in length. Liver is top normal size. Very coarse echotexture throughout the liver. Marked attenuation limiting evaluation of the deep liver. Towards the diaphragm the liver is poorly visualized. No mass or intrahepatic duct dilatation. Portal Vein: Normal hepatopetal flow with monophasic waveform. Gallbladder: Status post cholecystectomy. CBD: 0.5 cm Pancreas: Limited. Right kidney: 11.0 cm in length. Normal size and echogenicity. No hydronephrosis or mass. Aorta and IVC: Limited. No ascites. US/US abdomen limited [id number] IMPRESSION: 1. Limited ultrasound evaluation of the RIGHT upper quadrant due to body habit us. 2. Liver is top normal size with advanced hepatic steatosis. The entire liver is poorly visualized. 3. Prior cholecystectomy.
[2025-02-02 11:33] LABS: Hematocrit 38.4 % (37-53); Hemoglobin 12.60 g/dL (11.27-16.99); Mean Corpuscular HGB Conc 32.8 g/dL (30-55); Mean Corpuscular Hemoglobin 27.8 pg (27-33); Mean Corpuscular Volume 84.6 fl (82-101); Nucleated Red Blood Cells % 0 %; Platelet Count 199 10^3/cmm (157-399); Red Blood Count 4.54 10^6/uL (3.85-5.65); White Blood Count 9.88 10^3/uL (3.29-11.43)
[2025-02-02 11:50] LABS: Alanine Aminotransferase 38 U/L (0-41); Albumin Level 4.1 g/dL (3.5-5.2); Alkaline Phosphatase 60 U/L (40-130); Anion Gap 15.0 (5-19); Aspartate Amino Transferase 27 U/L (0-40); Blood Urea Nitrogen 15 mg/dL (6-20); Calcium 9.0 mg/dL (8.5-10.5); Carbon Dioxide 25 mmol/L (22-29); Chloride 98 mmol/L (98-107); Creatinine Clr Calc Pharmacy 241.4154; Globulin 3.0 g/dL (1.3-4.6); Glucose 157 mg/dL (65-115); Osmolality Calculated 282 mOsm/kg (285-295); Potassium 4.0 mmol/L (3.5-5.1); Sodium 134 mmol/L (136-145); Total Protein 7.1 g/dL (6.6-8.7)
[2025-02-02] MEDS: SODIUM CHLORIDE 0.9% IV (13:31)
[2025-02-02] MEDS: FLUOROURACIL IV (13:31)
--- NOTE | 2025-02-09 08:45 | ONCRAD TMN_ITS ---
Radiation Oncology Weekly Treatment Management Patient: Yony Ahumada MR#: [id number] : 1990> Attending Physician: Jesse Hayden Date of Service: 02/03/2025 Referring Physician(s) : Diagnosis: C20 - Malignant neoplasm of rectum, Diagnosed 06/04/2024 (Active) Radiotherapy to date: Course: Rectum 2024, Treatment Site: rectum/pelvis, Ref. ID: PTV, Energy: 15X, Dose/Fx (cGy): 200, #Fx: , Dose Correction (cGy): 0, Total Dose Delivered (cGy): 3,800, Start Date: 01/08/2025, Elapsed Days: 26 Reason for visit: The patient is being seen today as part of their regularly scheduled weekly on treatment visits to assess for acute toxicities from radiotherapy. Review of Systems: Tolerating treatment well. Some mild diarrhea Vital Signs: Performed on 02/03/2025 12:30 PM BMI - 42.931 kg/m2 (high), Height - 70 in, Weight - 299.2 lbs, Temperature - 95.1 f, Pulse - 88 /min, Respiration - 18 /min, O2 Sat - 98 %, Pain - 0, Fatigue - 0 and BP - 124/ 86 mm(hg). Physical Exam: AAOx3. Skin unchanged. Imaging: Radiation therapy imaging related to accurate target localization (i.e. KV, MV and CBCT) was reviewed. Appropriate changes, if any, were made to ensure treatment accuracy. Plan: Continue XRT Continued daily Xeloda during treatment. Signed by: Jesse Hayden 02/09/2025 8:44:11 AM
[2025-02-09 10:10] LABS: Hematocrit 37.9 % (37-53); Hemoglobin 12.80 g/dL (11.27-16.99); Mean Corpuscular HGB Conc 33.8 g/dL (30-55); Mean Corpuscular Hemoglobin 28.8 pg (27-33); Mean Corpuscular Volume 85.4 fl (82-101); Nucleated Red Blood Cells % 0 %; Platelet Count 279 10^3/cmm (157-399); Red Blood Count 4.44 10^6/uL (3.85-5.65); White Blood Count 8.59 10^3/uL (3.29-11.43)
[2025-02-09 10:38] LABS: Carcinoembryonic Antigen 1.7 ng/mL (0.0-4.7)
[2025-02-09 10:49] LABS: Alanine Aminotransferase 43 U/L (0-41); Albumin Level 4.2 g/dL (3.5-5.2); Alkaline Phosphatase 64 U/L (40-130); Anion Gap 17.8 (5-19); Aspartate Amino Transferase 40 U/L (0-40); Blood Urea Nitrogen 12 mg/dL (6-20); Calcium 9.4 mg/dL (8.5-10.5); Carbon Dioxide 24 mmol/L (22-29); Chloride 101 mmol/L (98-107); Creatinine Clr Calc Pharmacy 240.5200; Globulin 3.1 g/dL (1.3-4.6); Glucose 186 mg/dL (65-115); Osmolality Calculated 293 mOsm/kg (285-295); Potassium 3.8 mmol/L (3.5-5.1); Sodium 139 mmol/L (136-145); Total Protein 7.3 g/dL (6.6-8.7)
[2025-02-09] MEDS: ondansetron 2 mg/ML SDV 2 mL 8 MG IVP (11:47)
[2025-02-09] MEDS: FLUOROURACIL IV (13:13)
[2025-02-09] MEDS: SODIUM CHLORIDE 0.9% IV (13:13)
--- NOTE | 2025-02-10 13:59 | ONCRAD TMN_ITS ---
Radiation Oncology Weekly Treatment Management Patient: Marcio Bhakta MR#: [id number] : 1990 Attending Physician: Jesse Hayden Date of Service: 02/10/2025 Referring Physician(s) : Diagnosis: C20 - Malignant neoplasm of rectum, Diagnosed 06/04/2024 (Active) Radiotherapy to date: Course: Rectum 2024, Treatment Site: rectum/pelvis, Ref. ID: PTV, Energy: 15X, Dose/Fx (cGy): 200, #Fx: 24 / 25, Dose Correction (cGy): 0, Total Dose Delivered (cGy): 4,800, Start Date: 01/08/2025, End Date: 02/10/2025, Elapsed Days: 33 Reason for visit: The patient is being seen today as part of their regularly scheduled weekly on treatment visits to assess for acute toxicities from radiotherapy. Review of Systems: Completes treatment tomorrow. Chemotherapy will be discontinued on Sunday. He is to see the surgeon and get the MRI together approximately 6 weeks from tomorrow. No voice complaints. Patient very happy to be completing treatment tomorrow Vital Signs: Performed on 02/10/2025 1:27 PM BMI - 43.706 kg/m2 (high), Height - 70 in, Weight - 304.6 lbs, Temperature - 96.6 f, Pulse - 94 /min, Respiration - 18 /min, O2 Sat - 98 %, Pain - 0, Fatigue - 0 and BP - 137/ 84 mm(hg). Physical Exam: AAOx3. Skin intact Imaging: Radiation therapy imaging related to accurate target localization (i.e. KV, MV and CBCT) was reviewed. Appropriate changes, if any, were made to ensure treatment accuracy. Plan: Continue XRT Continue chemotherapy till Sunday Completes XRT tomorrow. RTC in 1 month or sooner if need be Signed by: Jeses Hayden 02/10/2025 1:57:18 PM
== END 2025-02-10 23:59 | disposition home or self-care (01) ==
PROVIDERS: Nurse Practitioner; Nurse Practitioner Family; PCP Nurse Practitioner Family; Visit Provider Radiology Radiation Oncology
DX: Z51.0 Encounter for antineoplastic radiation therapy (principal); C20 Malignant neoplasm of rectum
CPT/HCPCS: 76705; 77336; 77386; 80053; 82378; 82728; 83615; 83735; 85025; 96360; 96361; 96375; 96416; 96523; 99024; 99214; 99215; J1100; J2405; J3490; J7030; J9190; J9999

== ENCOUNTER 2025-03-12 12:04 | Oncology outpatient (recurring) (ONCR) | payer MEDICARE, MEDICAID, SELFPAY ==
--- NOTE | 2025-03-12 13:22 | ONCRAD EPV_ITS ---
Radiation Oncology Established Patient Visit Patient: Yony Buckley [id number] : 1990> Age: 35> Sex: Male> Dictated by: Jesse Hayden Date of Service: 03/12/2025 Referring Physician(s) : Dr Hatch Diagnosis: C20 - Malignant neoplasm of rectum, Diagnosed 06/04/2024 (Active) Radiotherapy to Date: Course: Rectum 2024, Treatment Site: rectum/pelvis, Ref. ID: PTV, Energy: 15X, Dose/Fx (cGy): 200, #Fx: 25 / 25, Dose Correction (cGy): 0, Total Dose Delivered (cGy): 5,000, Start Date: 01/08/2025, End Date: 02/11/2025, Elapsed Days: 34 Current History: This is a pleasant 34-year-old transitioning male who is now 1 month from chemoradiation for rectal carcinoma. Patient states he has no more diarrhea and his stools have form that he is not used to. He is to see medical oncology on 04/09/2025. Patient is to see his surgeon on March 30, 2025 and hopefully have his MRI of the pelvis there just prior to see in the surgeon. Resection in the future after further examination. Current Medications: . albuterol sulfate 2.5 mg (3 mL) inhalation Q6H PRNalprazolam (Xanax) 1 mg PO TID PRNcholecalciferol (vitamin D3) 50 mcg PO QPMdiclofenac sodium 1% 4 grams topical QIDdiphenoxylate-atropine 2.5-0.025 mg (Lomotil) 1 tab PO Q6H PRNdoxycycline hyclate 100 mg PO BID 10 daysestradiol 2 mg PO BID 30 daysfinasteride 1 mg PO DAILYhydrocortisone 1% 1 applic topical BID PRNhydroxyzine HCl 10 mg PO BID PRNibuprofen 800 mg PO TID PRNipratropium-albuterol 20-100 mcg/actuation (Combivent Respimat) 1 puff inhalation QID PRNlevothyroxine 100 mcg PO DAILYlidocaine-prilocaine 2.5-2.5 % Apply quarter-size amount to port site 30 minutes prior to access; cover with cling wraplorazepam 1 mg PO Q6H PRNlosartan 25 mg PO DAILY[Nebulizer As directed] nystatin-triamcinolone 100,000-0.1 unit/g-% 1 applic topical TIDondansetron HCl 4 mg PO Q6H PRNpantoprazole 40 mg PO BID 6 weekspotassium chloride ER (Klor-Con) 10 mEq PO DAILYprochlorperazine maleate (Compazine) 10 mg PO Q4H PRNpropranolol 40 mg PO BIDrimegepant (Nurtec ODT) 75 mg PO .QODsilver sulfadiazine 1% (Silvadene) 1 applic topical BID PRNspironolactone 50 mg PO BIDsumatriptan succinate TAKE ONE TABLET BY MOUTH AT ONSET of HEADACHE, if no RELIEF MAY REPEAT one tablet BY MOUTH AFTER AT least two hours. Max daily AMOUNT: FOUR TABLETS Allergies: cefaclor (From Ceclor) Allergy rash cefadroxil (From Duricef) Allergy rash penicillin G benethamine (benethamine penicillin) Allergy rash Penicillins Allergy rash Current Complaints / Review of Systems: . As above Vital Signs: Performed on 03/12/2025 12:54 PM BMI - 44.165 kg/m2 (high), Height - 70 in, Weight - 307.8 lbs, Temperature - 97.3 f, Pulse - 83 /min, Respiration - 18 /min, O2 Sat - 97 %, Pain - 0, Fatigue - 0 and BP - 126/ 86 mm(hg). Physical Exam: General: Alert and oriented x 3. No acute distress. HEENT: Normocephalic, atraumatic. Extraocular Movements Intact: Pupils Equal, Round, Reactive to Light and Accommodation: Sclerae anicteric. Oral cavity is clear without lesions, masses or ulcers. NECK: Supple without supraclavicular or jugular lymphadenopathy. LUNGS: Clear to auscultation bilaterally without rales, rhonchi or wheeze. HEART: Regular rate and rhythm, normal S1 and S2 without murmur, gallop or rub. MUSCULOSKELETAL: No tenderness or percussion pain over the axial skeleton, scapulae or pelvis. ABDOMEN: Soft, nontender, nondistended without masses or organomegaly. Bowell sounds are present. EXTREMITIES: No peripheral edema is identified. Limited motor and sensory examination are grossly intact and symmetric bilaterally. VINITA not performed at this time NEUROLOGIC: Cranial nerves II ???XII are grossly intact. Normal sensation, strength 5/5 in all extremities, normal gait, no ataxia. Performance Status: KPS 90 Lab: None pending. Pathology: Primary, c20 - malignant neoplasm of rectum, Diagnosed 06/04/2024 (active) . Imaging: See HPI Impression: Low lying rectal carcinoma S/P FOLFOX followed by combined chemoradiation therapy. Resolving GI complaints. PLAN: XRT dose of 5000 cGy in 25 fractions completing this on 02/11/2025. MRI Pelvis prior to seeing surgeon RTC in 3 months or sooner if need be. Signed by: 03/12/2025 1:21:26 PM <<Signature on File>> Time spent with patient/mother:25 minutes with global fee CPT Code: CPT Code:
== END 2025-03-24 23:59 | disposition home or self-care (01) ==
LOC: ONCMED 12:04
PROVIDERS: PCP Nurse Practitioner Family; Visit Provider Nurse Practitioner
DX: C20 Malignant neoplasm of rectum (principal); Z95.828 Presence of other vascular implants and grafts
CPT/HCPCS: 96523; 99024

== ENCOUNTER → 2025-03-19 15:05 | Outpatient (BNVA) | payer MEDICARE, MEDICAID, SELFPAY | PROVIDERS: PCP Nurse Practitioner Family; Visit Provider Nurse Practitioner Family | DX: E55.9 Vitamin D deficiency, unspecified (principal); Z79.899 Other long term (current) drug therapy; E03.9 Hypothyroidism, unspecified; D50.9 Iron deficiency anemia, unspecified; G43.909 Migraine, unspecified, not intractable, without status migrainosus; F64.0 Transsexualism; F41.9 Anxiety disorder, unspecified; F32.9 Major depressive disorder, single episode, unspecified; I10 Essential (primary) hypertension; E78.2 Mixed hyperlipidemia | CPT/HCPCS: 80053; 80061; 81003; 82306; 82607; 82670; 83036; 83550; 84144; 84146; 84439; 84443; 84481; 85025 ==

== ENCOUNTER → 2025-03-25 11:02 | Outpatient (BNVA) | payer MEDICARE, MEDICAID, SELFPAY | PROVIDERS: PCP Nurse Practitioner Family; Visit Provider Nurse Practitioner Family | DX: F64.0 Transsexualism (principal); Z79.899 Other long term (current) drug therapy | CPT/HCPCS: 82642; 84402; 84403 ==

== ENCOUNTER 2025-04-09 10:32 | Oncology outpatient (recurring) (ONCR) | payer MEDICARE, MEDICAID, SELFPAY ==
[2025-04-09 10:45] LABS: Hematocrit 38.3 % (37-53); Hemoglobin 12.50 g/dL (11.27-16.99); Mean Corpuscular HGB Conc 32.6 g/dL (30-55); Mean Corpuscular Hemoglobin 27.2 pg (27-33); Mean Corpuscular Volume 83.3 fl (82-101); Nucleated Red Blood Cells % 0 %; Platelet Count 324 10^3/cmm (157-399); Red Blood Count 4.60 10^6/uL (3.85-5.65); White Blood Count 10.90 10^3/uL (3.29-11.43)
[2025-04-09 11:07] LABS: Alanine Aminotransferase 57 U/L (0-41); Albumin Level 4.2 g/dL (3.5-5.2); Alkaline Phosphatase 67 U/L (40-130); Anion Gap 15.6 (5-19); Aspartate Amino Transferase 50 U/L (0-40); Blood Urea Nitrogen 14 mg/dL (6-20); Calcium 8.9 mg/dL (8.5-10.5); Carbon Dioxide 26 mmol/L (22-29); Chloride 100 mmol/L (98-107); Ferritin 292 ng/mL (30-400); Globulin 3.4 g/dL (1.3-4.6); Glucose 160 mg/dL (65-115); Iron 72 ug/dL (59-158); Osmolality Calculated 290 mOsm/kg (285-295); Potassium 3.6 mmol/L (3.5-5.1); Sodium 138 mmol/L (136-145); Total Iron Binding Capacity 269 mcg/dl; Total Protein 7.6 g/dL (6.6-8.7); Unsaturated Iron Binding 197 ug/dL (112-347)
[2025-04-09 11:23] LABS: Vitamin B12 365 pg/mL (232-1245)
[2025-04-09 11:28] LABS: Carcinoembryonic Antigen 1.1 ng/mL (0.0-4.7)
== END 2025-04-24 23:59 | disposition home or self-care (01) ==
PROVIDERS: Internal Medicine; PCP Nurse Practitioner Family; Visit Provider Nurse Practitioner
DX: Z53.9 Procedure and treatment not carried out, unspecified reason; C20 Malignant neoplasm of rectum; E55.9 Vitamin D deficiency, unspecified; M79.645 Pain in left finger(s); R74.01 Elevation of levels of liver transaminase levels; F64.0 Transsexualism; Z95.828 Presence of other vascular implants and grafts; Z92.3 Personal history of irradiation; Z92.21 Personal history of antineoplastic chemotherapy
CPT/HCPCS: 36591; 80053; 82306; 82378; 82607; 82728; 82746; 83010; 83540; 83550; 83615; 85025; 99213